=== PATIENT | female | born 1960 | race Caucasian/White ===

== ENCOUNTER 2016-04-18 11:33 | Emergency (ER) | payer OTHER ==
[~2016-04-18] VITALS: Ht 172.7 cm; Wt 60.0 kg
[~2016-04-18 11:33] MED LIST: BACL10TA PO; CIPR500T4 PO; CLON0.5T PO; DICY1TAB26 PO; GABA300 PO; OXYC10TA8 PO
[2016-04-18 11:43] VITALS: BP 115/58; PULSE 60; RESP 14; TEMP 98.7; O2SAT 96
[2016-04-18 12:22] LABS: BASOPHIL % 1.1 % (0.0-2.0); HEMATOCRIT 35.5 % (35.0-46.0); HEMO FLAGS DIFF FINAL; LYMPH % 25.6 % (9.0-44.0); LYMPHOCYTE # 0.8 TH/MM3 (1.0-4.8); MEAN CELL VOLUME 88.5 FL (80.0-100.0); MEAN CORPUSCULAR HGB CONC 32.8 % (32.0-36.0); NEUT % 66.3 % (16.0-70.0); PLATELET COUNT 163 TH/MM3 (150-450); RED BLOOD COUNT 4.01 MIL/MM3 (4.00-5.30); RED CELL DISTRIBUTION WIDTH 13.1 % (11.6-17.2)
[2016-04-18] MEDS ORDERED: ONDANSETRON HCL 4 MG/2 ML VIAL IV PUSH ONE (12:30)
--- NOTE | 2016-04-18 12:47 | PD ---
HPI Chief Complaint: Medical Clearance Time Seen by Provider: 12:44 Travel History International Travel<30 days: No Contact w/Intl Traveler<30days: No Traveled to known affect area: No History of Present Illness HPI 56-year-old female that presents to the ED for evaluation of possible side effect of Cymbalta. Per patient she has a history of MS and peripheral neuropathy. Per patient she's been taking Neurontin for a long time for this and she told yesterday to her doctor at that the Neurontin was working any more so her doctor stopped the Neurontin and recommended starting Cymbalta. She took one dose yesterday. Per patient she felt fine yesterday but today this morning she woke up with nausea and vomiting. She has vomited yellow fluid but no blood. She states that she believes is because of the Cymbalta. She states that she's been taking Neurontin for a long time but she did not took it today or yesterday. She states that she wants to go back to it as Cymbalta is given her too much of side effect. She denies any abdominal pain. No problems with bowel movement or urine. Per patient she did have a normal bowel movement yesterday. She denies any chest pain or shortness of breath. No headache. No other medical problems. PFSH Past Surgical History Section: Yes Cholecystectomy: Yes Social History Alcohol Use: No Tobacco Use: Yes Substance Use: No Allergies-Medications (Allergen,Severity, Reaction): Coded Allergies: No Known Allergies (Unverified , 01/26/16) Reported Meds & Prescriptions Reported Meds & Active Scripts Active Zofran (Ondansetron HCl) 4 Mg Tab 4 Mg PO Q6HR PRN Cipro (Ciprofloxacin HCl) 500 Mg Tab 500 Mg PO BID 7 Days Bentyl (Dicyclomine HCl) 20 Mg Tab 20 Mg PO Q8 Reported Clonazepam 0.5 Mg Tab 0.5 Mg PO HS Neurontin (Gabapentin) 300 Mg Cap 300 Mg PO BID Lioresal (Baclofen) 10 Mg Tab 10 Mg PO BID Oxycodone (Oxycodone HCl) 10 Mg Tab 10 Mg PO Q4H PRN Review of Systems Except as stated in HPI: all other systems reviewed are Neg Physical Exam Narrative GENERAL: SKIN: Warm and dry. HEAD: Atraumatic. Normocephalic. EYES: Pupils equal and round. No scleral icterus. No injection or drainage. ENT: No nasal bleeding or discharge. Mucous membranes pink and moist. Tongue is midline. No uvula deviation. NECK: Trachea midline. No JVD. CARDIOVASCULAR: Regular rate and rhythm. No murmurs, S3, S4. RESPIRATORY: No accessory muscle use. Clear to auscultation. Breath sounds equal bilaterally. GASTROINTESTINAL: Abdomen soft, non-tender, nondistended. Hepatic and splenic margins not palpable. MUSCULOSKELETAL: Extremities without clubbing, cyanosis, or edema. No obvious deformities. Full range of motion of the upper and lower extremities bilaterally. 2+ pulses bilaterally. NEUROLOGICAL: Awake and alert. No obvious cranial nerve deficits. Motor grossly within normal limits. Five out of 5 muscle strength in the arms and legs. Normal speech. PSYCHIATRIC: Appropriate mood and affect; insight and judgment normal. Data Data Last Documented VS Vital Signs Date Time Temp Pulse Resp B/P Pulse Ox O2 Delivery O2 Flow Rate FiO2 04/18/16 11:43 98.7 60 14 115/58 96 Orders Complete Blood Count With Diff (04/18/16 11:50) Comprehensive Metabolic Panel (04/18/16 11:50) Lipase (04/18/16 11:50) Urinalysis - C+S If Indicated (04/18/16 11:50) Magnesium (Mg) (04/18/16 11:50) Ondansetron Inj (Zofran Inj) (04/18/16 12:30) Potassium, Serum (K) (04/18/16 13:06) Electrocardiogram (04/18/16 ) Troponin I (04/18/16 13:39) Ct Abd/Pel W Iv Contrast(Rout) (04/18/16 ) Iohexol 350 Inj (Omnipaque 350 Inj) (04/18/16 14:59) Labs Laboratory Tests Test 04/18/16 04/18/16 12:09 13:28 White Blood Count 3.0 TH/MM3 Red Blood Count 4.01 MIL/MM3 Hemoglobin 11.6 GM/DL Hematocrit 35.5 % Mean Corpuscular Volume 88.5 FL Mean Corpuscular Hemoglobin 29.0 PG Mean Corpuscular Hemoglobin 32.8 % Concent Red Cell Distribution Width 13.1 % Platelet Count 163 TH/MM3 Mean Platelet Volume 9.1 FL Neutrophils (%) (Auto) 66.3 % Lymphocytes (%) (Auto) 25.6 % Monocytes (%) (Auto) 6.0 % Eosinophils (%) (Auto) 1.0 % Basophils (%) (Auto) 1.1 % Neutrophils # (Auto) 2.0 TH/MM3 Lymphocytes # (Auto) 0.8 TH/MM3 Monocytes # (Auto) 0.2 TH/MM3 Eosinophils # (Auto) 0.0 TH/MM3 Basophils # (Auto) 0.0 TH/MM3 CBC Comment DIFF FINAL Differential Comment Sodium Level 141 MEQ/L Potassium Level 5.3 MEQ/L 4.5 MEQ/L Chloride Level 110 MEQ/L Carbon Dioxide Level 28.0 MEQ/L Anion Gap 3 MEQ/L Blood Urea Nitrogen 19 MG/DL Creatinine 0.54 MG/DL Estimat Glomerular Filtration 117 ML/MIN Rate Random Glucose 75 MG/DL Calcium Level 7.3 MG/DL Protein Corrected Calcium 7.7 MG/DL Magnesium Level 1.7 MG/DL Total Bilirubin 0.4 MG/DL Aspartate Amino Transf 45 U/L (AST/SGOT) Alanine Aminotransferase 20 U/L (ALT/SGPT) Alkaline Phosphatase 83 U/L Troponin I LESS THAN 0.02 NG/ML Total Protein 6.3 GM/DL Albumin 2.6 GM/DL Lipase 21 U/L MDM Medical Decision Making Medical Screen Exam Complete: Yes Emergency Medical Condition: Yes Medical Record Reviewed: Yes Interpretation(s) CBC Diagram 04/18/16 12:09 BMP Diagram 04/18/16 12:09 04/18/16 13:28 troponin negative LFTS and lipase WNL UA negative Differential Diagnosis Medication side effect versus nausea and vomiting versus acute abdomen versus viral illness versus normal exam Narrative Course 56-year-old female that presents to the ED for evaluation of possible medication side effect. Patient was properly examined and was found to have signs and symptoms consistent with appears to be likely medication side effect. I did look up in up-to-date and went to the mind side effect of Cymbalta is nausea and vomiting. Discussed be secondary to stopping Neurontin. Patient's physical exam is benign. She does have a history of MS but I do not believe that this is related to that. My recommendation is to the left runny sign of acute disease as well as give treatment for the nausea. She is agreeable with this. Patient was given Zofran. Labs were drawn and showed no sign of acute disease. Patient was reassured. Case discussed with my attending Dr Trinh who evaluated the patient with me and agrees with plan. Patient was instructed to continue Neurontin as normal. Follow with Dr. Busch this week. Patient was given prescription for Zofran for nausea prophylaxis. See ED for any worsening symptoms. Diagnosis Primary Impression: Medication side effect Qualified Code: T88.7XXA - Medication side effect, initial encounter Patient Instructions: General Instructions Additional Instructions: Follow-up with your neurologist. See ED worsening symptoms. Take medications as prescribed. Med/Other Pt SpecificInfo: Prescription(s) given Scripts Ondansetron (Zofran)4 Mg Tab4 Mg PO Q6HR PRN (NAUSEA OR VOMITING) #20 TAB Prov:Brianna Trinh MD 04/18/16 Disposition: 01 DISCHARGE HOME Condition: Stable Ottoniel Garcia Apr 18, 2016 12:47
[2016-04-18 12:54] LABS: CALCIUM-PROTEIN CORRECTED 7.7 MG/DL (8.5-10.1); TOTAL BILIRUBIN ADULT 0.4 MG/DL (0.2-1.0)
[2016-04-18 12:55] LABS: MAGNESIUM 1.7 MG/DL (1.5-2.5); POTASSIUM 5.3 MEQ/L (3.5-5.1)
--- NOTE | 2016-04-18 14:36 | RADRPT ---
EXAM DATE/TIME: 04/18/2016 14:06 [facility] COMPARISON: CT ABDOMEN & PELVIS W CONTRAST, November 24, 2015, 20:33. INDICATIONS : Nausea and vomiting starting this morning IV CONTRAST: 71 cc Omnipaque 350 (iohexol) IV ORAL CONTRAST: No oral contrast ingested. RADIATION DOSE: 9.66 CTDIvol (mGy) MEDICAL HISTORY : Multple sclerosis. SURGICAL HISTORY : Cholecystectomy. section. ENCOUNTER: Initial ACUITY: 1 day PAIN SCALE: 2/10 LOCATION: Abdomen TECHNIQUE: Volumetric scanning of the abdomen and pelvis was performed. Using automated exposure control and ad justment of the mA and/or kV according to patient size, radiation dose was kept as low as reasonably achievable to obtain optimal diagnostic quality images. FINDINGS: LOWER LUNGS: The visualized lower lungs are clear. LIVER: Homogeneous density with a small stable benign cyst again noted in the right lobe. The patient is sta tus post cholecystectomy. There is no dilation of the biliary tree. SPLEEN: Normal size without lesion. PANCREAS: Within normal limits. KIDNEYS: Normal in size and shape. There is no mass, stone or hydronephrosis. ADRENAL GLANDS: Within normal limits. VASCULAR: There is no aortic aneurysm. BOWEL/MESENTERY: The stomach, small bowel, and colon demonstrate no acute abnormality. There is no free intraperitone al air or fluid. ABDOMINAL WALL: Within normal limits. RETROPERITONEUM: There is no lymphadenopathy. BLADDER: No wall thickening or mass. REPRODUCTIVE: Within normal limits. INGUINAL: There is no lymphadenopathy or hernia. MUSCULOSKELETAL: Within normal limits for patient age. CONCLUSION: 1. Unremarkable bowel gas pattern with no inflammatory change or obstruction. 2. Status post cholecystectomy. 3. Stable simple cyst in liver. Jens Archer MD on April 18, 2016 at 14:31 Board Certified Radiologist. This report was verified electronically.
[2016-04-18] MEDS ORDERED: ZOFR4TAB PO (14:45)
[2016-04-18] MEDS ORDERED: IOHEXOL 350 MG/ML 10 ML VIAL (for RAD DIAG) IV ONE (14:59)
--- NOTE | 2016-04-19 22:59 | EKG ---
Date Performed: 04/18/2016 Time Performed: 12:54:47 PTAGE: 56 years EKG: Sinus rhythm WITH SINUS ARRHYTHMIA POSSIBLE LEFT ATRIAL ENLARGEMENT BORDERLINE ECG NO PREVIOUS TRACING DOCTOR: Sanchez Hoang Interpretating Date/Time 04/19/2016 22:51:55
== END 2016-04-18 15:34 | disposition home or self-care (01) ==
LOC: NEDAMB 11:33
DX: T43.215A Adverse effect of selective serotonin and norepinephrine reuptake inhibitors, initial encounter (principal); R11.2 Nausea with vomiting, unspecified; Y92.009 Unspecified place in unspecified non-institutional (private) residence as the place of occurrence of the external cause; G62.9 Polyneuropathy, unspecified; Z72.0 Tobacco use; R94.31 Abnormal electrocardiogram [ECG] [EKG]
CPT/HCPCS: 74177; 80053; 83690; 83735; 84132; 84484; 85025; 93005; 96374; 99284; J2405; Q9967

== ENCOUNTER 2016-06-10 19:48 | Emergency (ER) | payer OTHER ==
[~2016-06-10 19:48] MED LIST changes: +ZOFR4TAB PO
[2016-06-10 20:20] VITALS: BP 94/47; PULSE 50; RESP 14; TEMP 97.6; O2SAT 99
== END 2016-06-10 22:00 | disposition left against medical advice (07) ==
LOC: PHED 19:48
DX: T68.XXXA Hypothermia, initial encounter (principal)
CPT/HCPCS: 99281

== ENCOUNTER 2016-11-22 14:43 | Emergency (ER) | payer OTHER ==
[2016-11-22 15:25] VITALS: BP 126/60; PULSE 45; RESP 16; TEMP 97.9; O2SAT 100
[2016-11-22] MEDS ORDERED: SODIUM CHLOR 0.9% 1000 ML INJ 1,000 ML IV SCH (15:31)
[2016-11-22] MEDS ORDERED: LYRI50CA PO (15:32)
[2016-11-22] MEDS ORDERED: BACL20TA PO (15:32)
[2016-11-22] MEDS ORDERED: CLON0.5T PO (15:32)
[2016-11-22] MEDS ORDERED: PERC10TA27 PO (15:32)
[2016-11-22] MEDS ORDERED: SODIUM CHLORIDE 0.9% FLUSH 10 ML FLUSH IV FLUSH PRN (15:45)
[2016-11-22 15:58] VITALS: O2SAT 99
[2016-11-22 16:06] LABS: AUTOMATED NEUTROPHIL # 2.4 TH/MM3 (1.8-7.7); BASOPHIL # 0.1 TH/MM3 (0-0.2); BASOPHIL % 1.1 % (0.0-2.0); EOSINOPHIL # 0.1 TH/MM3 (0-0.4); EOSINOPHIL % 1.1 % (0.0-4.0); HEMATOCRIT 40.3 % (35.0-46.0); HEMO FLAGS DIFF FINAL; LYMPH % 42.9 % (9.0-44.0); LYMPHOCYTE # 2.3 TH/MM3 (1.0-4.8); MEAN CORPUSCULAR HEMOGLOBIN 28.4 PG (27.0-34.0); MEAN CORPUSCULAR HGB CONC 32.2 % (32.0-36.0); MONO % 8.3 % (0.0-8.0); NEUT % 46.6 % (16.0-70.0); PLATELET COUNT 207 TH/MM3 (150-450); RED BLOOD COUNT 4.57 MIL/MM3 (4.00-5.30); RED CELL DISTRIBUTION WIDTH 13.2 % (11.6-17.2); WHITE BLOOD COUNT 5.3 TH/MM3 (4.0-11.0)
[2016-11-22 16:26] LABS: BLOOD, URINE TRACE (NEG); GLUCOSE,URINE NEG (NEG); KETONE, URINE NEG (NEG); NITRITE,URINE NEG (NEG)
[2016-11-22 16:30] LABS: CHLORIDE 104 MEQ/L (98-107); POTASSIUM 3.8 MEQ/L (3.5-5.1); SODIUM (NA) 143 MEQ/L (136-145)
[2016-11-22 16:34] LABS: ANION GAP 7 MEQ/L (5-15); BICARBONATE 32.3 MEQ/L (21.0-32.0); BLOOD UREA NITROGEN 21 MG/DL (7-18)
[2016-11-22 16:37] LABS: ALT (GPT) 43 U/L (10-53); AST (GOT) 33 U/L (15-37); GLOMERULAR FILTRATION RATE 100 ML/MIN (>89)
[2016-11-22 16:38] LABS: TOTAL BILIRUBIN ADULT 0.6 MG/DL (0.2-1.0)
[2016-11-22 16:39] LABS: ALKALINE PHOSPHATASE 104 U/L (45-117)
[2016-11-22 16:45] LABS: URINE COLOR YELLOW (YELLW/STRAW)
[2016-11-22 16:46] LABS: MUCUS URINE MANY /lpf (OCC); RBC, URINE 0-3 /hpf (0-3); SQUAMOUS EPITHELIAL CELL URINE 0-5 /hpf (0-5)
[2016-11-22 16:47] LABS: COMMENT (UR) CULT NOT INDICATED; CULTURE IF INDICATED CULT NOT INDICATED
--- NOTE | 2016-11-22 17:06 | PD ---
HPI Chief Complaint: Abdominal Pain Time Seen by Provider: 15:31 Travel History International Travel<30 days: No Contact w/Intl Traveler<30days: No Traveled to known affect area: No History of Present Illness HPI The patient is 56-year-old female. She complains of 2 weeks of epigastric and left upper quadrant abdominal pain. She reports decreased oral intake generally. She denies fever. She denies vomiting nausea. She notes that her urologist believe the CT scan is indicated. She's seen no blood in the urine. She's had no flank pain. Patient has chronic abdominal pain. Patient has a history of MS. [facility] Past Medical History Diminished Hearing: No Neurologic: Yes (ms) Tetanus Vaccination: Unknown ?: Not Past Surgical History Section: Yes Cholecystectomy: Yes Social History Alcohol Use: No Tobacco Use: Yes Substance Use: No Allergies-Medications (Allergen,Severity, Reaction): Coded Allergies: duloxetine (Unverified Allergy, Intermediate, MUSCLE SPASMS , 11/12/16) Reported Meds & Prescriptions Reported Meds & Active Scripts Active Reported Clonazepam 0.5 Mg Tab 0.5 Mg PO HS Baclofen 20 Mg Tab 40 Mg PO BID Lyrica (Pregabalin) 50 Mg Cap 50 Mg PO DAILY Percocet (Oxycodone-Acetaminophen) 10-325 mg Tab 1 Tab PO Q6H PRN Review of Systems Except as stated in HPI: all other systems reviewed are Neg Physical Exam Narrative GENERAL: 56-year-old female well-nourished well-developed SKIN: Warm and dry. HEAD: Atraumatic. Normocephalic. EYES: Pupils equal and round. No scleral icterus. No injection or drainage. ENT: No nasal bleeding or discharge. Mucous membranes pink and moist. NECK: Trachea midline. No JVD. CARDIOVASCULAR: Regular rate and rhythm. RESPIRATORY: No accessory muscle use. Clear to auscultation. Breath sounds equal bilaterally. GASTROINTESTINAL: Abdomen soft, non-tender, nondistended. Hepatic and splenic margins not palpable. MUSCULOSKELETAL: Extremities without clubbing, cyanosis, or edema. No obvious deformities. NEUROLOGICAL: Speaking full sentences. No cranial nerve deficit. Generalized weakness motor function PSYCHIATRIC: Appropriate mood and affect; insight and judgment normal. Data Data Last Documented VS Vital Signs Date Time Temp Pulse Resp B/P (MAP) Pulse Ox O2 Delivery O2 Flow Rate FiO2 11/22/16 15:58 99 11/22/16 15:27 16 11/22/16 15:25 97.9 45 126/60 (82) Orders Orders Complete Blood Count With Diff (11/22/16 15:31) Comprehensive Metabolic Panel (11/22/16 15:31) Lipase (11/22/16 15:31) Iv Access Insert/Monitor (11/22/16 15:31) Ecg Monitoring (11/22/16 15:31) Oximetry (11/22/16 15:31) Sodium Chlor 0.9% 1000 Ml Inj (Ns 1000 M (11/22/16 15:31) Sodium Chloride 0.9% Flush (Ns Flush) (11/22/16 15:45) Cath For Specimen (11/22/16 15:33) Urinalysis - C+S If Indicated (11/22/16 15:33) Labs Laboratory Tests Test 11/22/16 15:56 11/22/16 16:18 White Blood Count 5.3 TH/MM3 Red Blood Count 4.57 MIL/MM3 Hemoglobin 13.0 GM/DL Hematocrit 40.3 % Mean Corpuscular Volume 88.0 FL Mean Corpuscular Hemoglobin 28.4 PG Mean Corpuscular Hemoglobin Concent 32.2 % Red Cell Distribution Width 13.2 % Platelet Count 207 TH/MM3 Mean Platelet Volume 8.7 FL Neutrophils (%) (Auto) 46.6 % Lymphocytes (%) (Auto) 42.9 % Monocytes (%) (Auto) 8.3 % Eosinophils (%) (Auto) 1.1 % Basophils (%) (Auto) 1.1 % Neutrophils # (Auto) 2.4 TH/MM3 Lymphocytes # (Auto) 2.3 TH/MM3 Monocytes # (Auto) 0.4 TH/MM3 Eosinophils # (Auto) 0.1 TH/MM3 Basophils # (Auto) 0.1 TH/MM3 CBC Comment DIFF FINAL Differential Comment Blood Urea Nitrogen 21 MG/DL Creatinine 0.62 MG/DL Random Glucose 92 MG/DL Total Protein 7.9 GM/DL Albumin 3.4 GM/DL Calcium Level 9.3 MG/DL Alkaline Phosphatase 104 U/L Aspartate Amino Transf (AST/SGOT) 33 U/L Alanine Aminotransferase (ALT/SGPT) 43 U/L Total Bilirubin 0.6 MG/DL Sodium Level 143 MEQ/L Potassium Level 3.8 MEQ/L Chloride Level 104 MEQ/L Carbon Dioxide Level 32.3 MEQ/L Anion Gap 7 MEQ/L Estimat Glomerular Filtration Rate 100 ML/MIN Lipase 64 U/L Urine Color YELLOW Urine Turbidity CLEAR Urine pH 5.0 Urine Specific [place] 1.027 Urine Protein NEG mg/dL Urine Glucose (UA) NEG mg/dL Urine Ketones NEG mg/dL Urine Occult Blood TRACE Urine Nitrite NEG Urine Bilirubin SMALL Urine Leukocyte Esterase NEG Urine RBC 0-3 /hpf Urine Squamous Epithelial Cells 0-5 /hpf Urine Mucus MANY /lpf Microscopic Urinalysis Comment CULT NOT INDICATED MDM Medical Decision Making Medical Screen Exam Complete: Yes Emergency Medical Condition: Yes Medical Record Reviewed: Yes Differential Diagnosis Gastritis, pancreatitis, appendicitis, acute cholecystitis, ascending cholangitis, AAA, perforated viscous, mesenteric ischemia, hepatitis, cystitis, hydronephrosis/hydroureter/nephroureter calculus, mesenteric adenitis, biliary colic Narrative Course CBC & BMP Diagram 11/22/16 15:56 Total Protein 7.9, Albumin 3.4, Calcium Level 9.3, Alkaline Phosphatase 104, Aspartate Amino Transf (AST/SGOT) 33, Alanine Aminotransferase (ALT/SGPT) 43, Total Bilirubin 0.6 Urinalysis reveals no UTI The patient is resting comfortably and feels better, is alert and in no distress. The patients results and examination findings were discussed. The repeat examination is unremarkable and benign. The history, exam, diagnostic testing, and current condition do not suggest any significant pathology to warrant further testing, continued ED treatment, admission, or surgical evaluation at this point. The vital signs have been stable. The patient does not have uncontrollable pain, intractable vomiting, or other significant symptoms. The patient's condition is stable and appropriate for discharge. The patient will pursue further outpatient evaluation with a primary care physician or other designated or consulting physician as indicated in the discharge instructions. The patient expressed understanding and was agreeable with this plan. Diagnosis Primary Impression: Epigastric abdominal pain Additional Impression: Loss of appetite Referrals: Primary Care Physician 2 days Additional Instructions: You have a choice when it comes to health care, and we are glad that you chose [facility]. Hopefully, we have met your expectations on today's visit. You are welcome to return to [facility] at any time, as we are committed to meeting the health care needs of our community. Med/Other Pt SpecificInfo: No Change to Meds Disposition: 01 DISCHARGE HOME Condition: Stable Nate Hannon MD Nov 22, 2016 17:06
[2016-11-22 17:35] VITALS: BP 112/63; PULSE 46; RESP 16; O2SAT 100
== END 2016-11-22 18:04 | disposition home or self-care (01) ==
LOC: PHED 14:43
DX: R10.13 Epigastric pain (principal); R63.0 Anorexia; Z72.0 Tobacco use; G35 Multiple sclerosis
CPT/HCPCS: 80053; 81001; 83690; 85025; 96360; 99284; J7030

== ENCOUNTER 2017-04-23 20:17 | Observation (INO) | payer OTHER, MEDICAID ==
[2017-04-23] MEDS: ASPIRIN 81 MG CHEW TAB PO (21:09)
[2017-04-23] MEDS: NITROGLYCERIN 0.4 MG SL 25 TABS/BTL SL (21:10)
[2017-04-23] MEDS ORDERED: SODIUM CHLORIDE 0.9% FLUSH 10 ML FLUSH IVF (21:15)
[2017-04-23 21:31] LABS: AUTOMATED NEUTROPHIL # 1.6 TH/MM3 (1.8-7.7); BASOPHIL # 0.1 TH/MM3 (0-0.2); BASOPHIL % 1.4 % (0.0-2.0); EOSINOPHIL # 0.1 TH/MM3 (0-0.4); EOSINOPHIL % 1.7 % (0.0-4.0); HEMATOCRIT 38.5 % (35.0-46.0); HEMO FLAGS DIFF FINAL; HEMOGLOBIN 12.4 GM/DL (11.6-15.3); LYMPH % 49.1 % (9.0-44.0); LYMPHOCYTE # 1.9 TH/MM3 (1.0-4.8); MEAN CORPUSCULAR HEMOGLOBIN 28.6 PG (27.0-34.0); MEAN CORPUSCULAR HGB CONC 32.2 % (32.0-36.0); MEAN PLATELET VOLUME 9.1 FL (7.0-11.0); MONO % 6.5 % (0.0-8.0); MONOCYTE # 0.3 TH/MM3 (0-0.9); NEUT % 41.3 % (16.0-70.0); PLATELET COUNT 161 TH/MM3 (150-450); RED BLOOD COUNT 4.33 MIL/MM3 (4.00-5.30); RED CELL DISTRIBUTION WIDTH 12.6 % (11.6-17.2)
[2017-04-23 21:36] LABS: CHLORIDE 104 MEQ/L (98-107); POTASSIUM 3.8 MEQ/L (3.5-5.1); SODIUM (NA) 141 MEQ/L (136-145)
[2017-04-23 21:39] LABS: CALCIUM 8.8 MG/DL (8.5-10.1)
[2017-04-23 21:40] LABS: ALBUMIN 3.4 GM/DL (3.4-5.0); ANION GAP 4 MEQ/L (5-15); BICARBONATE 33.3 MEQ/L (21.0-32.0); BLOOD UREA NITROGEN 18 MG/DL (7-18); GLUCOSE,RANDOM 106 MG/DL (74-106); MAGNESIUM 1.9 MG/DL (1.5-2.5)
[2017-04-23 21:41] LABS: APTT (PATIENT) 26.7 SEC (24.3-30.1); PROTHROMBIN TIME - PATIENT 10.6 SEC (9.8-11.6)
[2017-04-23 21:43] LABS: ALT (GPT) 29 U/L (10-53); AST (GOT) 27 U/L (15-37); CREATININE 0.61 MG/DL (0.50-1.00); GLOMERULAR FILTRATION RATE 101 ML/MIN (>89)
[2017-04-23 21:44] LABS: TOTAL BILIRUBIN ADULT 0.4 MG/DL (0.2-1.0); TOTAL PROTEIN 7.7 GM/DL (6.4-8.2)
[2017-04-23 21:46] LABS: ALKALINE PHOSPHATASE 102 U/L (45-117)
[2017-04-23 21:48] LABS: TROPONIN I LESS THAN 0.02 NG/ML (0.02-0.05)
[2017-04-23 21:50] LABS: CREATINE KINASE 59 U/L (26-192)
[2017-04-23 22:47] LABS: BILIRUBIN, URINE NEG (NEG); BLOOD, URINE NEG (NEG); GLUCOSE,URINE NEG (NEG); KETONE, URINE NEG (NEG); NITRITE,URINE NEG (NEG); URINE LEUKOCYTE ESTERASE NEG (NEG)
[2017-04-23 22:51] LABS: URINE COLOR YELLOW (YELLW/STRAW)
[2017-04-23 22:53] LABS: AMORPHOUS SEDIMENT, URINE FEW; COMMENT (UR) CATH-CULT NOT IND; CULTURE IF INDICATED CATH CULTURE NOT IND; MUCUS URINE FEW /lpf (OCC); SQUAMOUS EPITHELIAL CELL URINE > 8 /hpf (0-5)
[2017-04-23] MEDS ORDERED: NITROGLYCERIN 0.4 MG SL 25 TABS/BTL SL (23:45)
[2017-04-23] MEDS ORDERED: ACETAMINOPHEN 500 MG CPLT PO (23:45)
[2017-04-23] MEDS ORDERED: SODIUM CHLORIDE 0.9% FLUSH 10 ML FLUSH IV FLUSH (23:45)
[2017-04-24] MEDS: clonazePAM 1 MG TAB PO (00:20)
[2017-04-24] MEDS: BACLOFEN 20 MG TAB PO ×2 (00:20→07:54)
[2017-04-24] MEDS: oxyCODONE/ACETAMINOPHEN 10 MG/325 MG TAB PO ×3 (00:27→14:38)
[2017-04-24 03:42] LABS: TROPONIN I LESS THAN 0.02 NG/ML (0.02-0.05)
[2017-04-24 03:45] LABS: CREATINE KINASE 57 U/L (26-192)
[2017-04-24] MEDS: HEPARIN SODIUM - SQ 10,000 UNITS/ML VIAL SQ ×2 (06:27→12:13)
[2017-04-24 06:54] LABS: TROPONIN I LESS THAN 0.02 NG/ML (0.02-0.05)
[2017-04-24 06:57] LABS: CREATINE KINASE 53 U/L (26-192)
[2017-04-24] MEDS: SODIUM CHLORIDE 0.9% FLUSH 10 ML FLUSH IV FLUSH (07:53)
[2017-04-24] MEDS: PREGABALIN 25 MG CAP PO (07:54)
[2017-04-24] MEDS: ASPIRIN 325 MG TAB PO (07:55)
[2017-04-24] MEDS: DOCUSATE SODIUM 50 MG/SENNA 8.6 MG TAB PO (09:00)
[2017-04-24] MEDS ORDERED: BISACODYL 10 MG SUPP RECTAL (09:00)
[2017-04-24] MEDS ORDERED: MAGNESIUM HYDROXIDE SUSP 30 ML CUP PO (09:00)
[2017-04-24] MEDS: REGADENOSON INJ 0.4 MG/5 ML SYR IV (10:25)
[2017-04-24 11:59] LABS: CHOLESTEROL 191 MG/DL (120-200)
[2017-04-24] MEDS: SENNOSIDES 8.6 MG TAB PO (12:04)
[2017-04-24 12:14] LABS: CHOLESTEROL/ HDL RATIO 3.07 RATIO; HDL CHOLESTEROL 62.2 MG/DL (40.0-60.0); LDL CHOLESTEROL 121 MG/DL (0-99); TRIGLYCERIDES 41 MG/DL (42-150)
[2017-04-24] MEDS ORDERED: clonazePAM 0.5 MG TAB PO (21:00)
== END 2017-04-24 17:16 | disposition home or self-care (01) ==
LOC: PH3A 04-24 01:36 → PHED 20:17 → PHEDA 23:45
DX: R07.89 Other chest pain (principal); G35 Multiple sclerosis; R06.02 Shortness of breath; G62.9 Polyneuropathy, unspecified; R00.1 Bradycardia, unspecified; M79.602 Pain in left arm; Z72.0 Tobacco use; Z82.49 Family history of ischemic heart disease and other diseases of the circulatory system
CPT/HCPCS: 71045; 78452; 80053; 80061; 81001; 82550; 83735; 84484; 85025; 85610; 85730; 93005; 93017; 96372; 99285

== ENCOUNTER 2017-05-12 01:13 | Emergency (ER) | payer OTHER, MEDICAID ==
[~2017-05-12] VITALS: Ht 172.7 cm; Wt 75.0 kg
[2017-05-12 01:13] VITALS: BP 148/65; PULSE 58; RESP 16; TEMP 97.5; O2SAT 99
[~2017-05-12 01:13] MED LIST changes: -BACL10TA PO; +BACL20TA PO; -CIPR500T4 PO; -DICY1TAB26 PO; -GABA300 PO; +LYRI50CA PO; -OXYC10TA8 PO; +PERC10TA27 PO; -ZOFR4TAB PO
[2017-05-12] MEDS ORDERED: ASPI81CH6 CHEW (01:30)
[2017-05-12] MEDS ORDERED: SODIUM CHLORIDE 0.9% FLUSH 10 ML FLUSH IVF PRN (01:45)
[2017-05-12 01:55] LABS: AUTOMATED NEUTROPHIL # 2.4 TH/MM3 (1.8-7.7); BASOPHIL % 0.4 % (0.0-2.0); HEMATOCRIT 35.9 % (35.0-46.0); LYMPH % 19.4 % (9.0-44.0); LYMPHOCYTE # 0.7 TH/MM3 (1.0-4.8); MEAN CELL VOLUME 88.4 FL (80.0-100.0); MEAN CORPUSCULAR HEMOGLOBIN 29.6 PG (27.0-34.0); MEAN CORPUSCULAR HGB CONC 33.5 % (32.0-36.0); MEAN PLATELET VOLUME 8.2 FL (7.0-11.0); MONOCYTE # 0.4 TH/MM3 (0-0.9); NEUT % 68.2 % (16.0-70.0); PLATELET COUNT 178 TH/MM3 (150-450); RED BLOOD COUNT 4.06 MIL/MM3 (4.00-5.30); RED CELL DISTRIBUTION WIDTH 12.7 % (11.6-17.2); WHITE BLOOD COUNT 3.5 TH/MM3 (4.0-11.0)
[2017-05-12 02:01] LABS: BILIRUBIN, URINE NEG (NEG); BLOOD, URINE SMALL (NEG); GLUCOSE,URINE NEG (NEG); KETONE, URINE 40 mg/dL (NEG); NITRITE,URINE POS (NEG); URINE LEUKOCYTE ESTERASE LARGE (NEG)
[2017-05-12 02:04] LABS: CALCIUM 8.9 MG/DL (8.5-10.1)
[2017-05-12 02:05] LABS: BICARBONATE 30.4 MEQ/L (21.0-32.0)
[2017-05-12 02:08] LABS: CREATININE 0.5 MG/DL (0.50-1.00); MUCUS URINE FEW /lpf (OCC); SQUAMOUS EPITHELIAL CELL URINE 0-5 /hpf (0-5); URINE COLOR YELLOW (YELLW/STRAW)
[2017-05-12 02:09] LABS: BACTERIA, URINE MANY /hpf; WHITE BLOOD CELL CLUMPS MOD
[2017-05-12 02:10] LABS: RBC, URINE 0-3 /hpf (0-3)
[2017-05-12] MEDS ORDERED: cefTRIAXone INJ 1,000 MG in SODIUM CHLORIDE 0.9% INJ 100 ML IV ONE (02:30)
--- NOTE | 2017-05-12 02:32 | PD ---
HPI Chief Complaint: General Weakness Time Seen by Provider: 01:38 Travel History International Travel<30 days: No Contact w/Intl Traveler<30days: No Traveled to known affect area: No History of Present Illness HPI 57-year-old female with history of multiple sclerosis and neuropathy presents to the emergency department for stating he has not felt well for several days. Patient states she contacted her provider indicating that she thought she had a urinary tract infection and was encouraged to follow-up in the office. Patient states that she decided not to follow-up as indicated but over the weekend symptoms have worsened and presents now for further evaluation. Patient presents by EMS transport. Patient states that she knows her body and is convinced that she has a urinary tract infection. Patient is also had sinus congestion and cough. Cough is nonproductive but congested. Patient denies fever chills. Patient did have flu vaccine. The patient rates her pain 8/10 in intensity. PFSH Past Medical History Narrative Medical Cholecystectomy ; anemia cholelithiasis chest pain multiple sclerosis neuropathy no tobacco use; nursing notes reviewed Anemia: Yes Chest Pain: Yes Diminished Hearing: No Gastrointestinal Disorders: Yes (GALLSTONES) Genitourinary: No Immune Disorder: No Musculoskeletal: Yes Neurologic: Yes (MULTIPLE SCLEROSIS) Psychiatric: No Reproductive: No Respiratory: No Tetanus Vaccination: > 5 Years Influenza Vaccination: Yes ?: Not Menopausal: Yes : 1 Para: 1 Tubal Ligation: Yes Past Surgical History Abdominal Surgery: Yes Section: Yes (1984) Cholecystectomy: Yes Gynecologic Surgery: Yes Social History Alcohol Use: No Tobacco Use: No (QUIT 2009) Substance Use: No Allergies-Medications (Allergen,Severity, Reaction): Coded Allergies: duloxetine (Unverified Allergy, Intermediate, MUSCLE SPASMS , 05/12/17) Reported Meds & Prescriptions Reported Meds & Active Scripts Active Reported Aspirin Low Dose (Aspirin) 81 Mg Chew 81 Mg CHEW DAILY Clonazepam 0.5 Mg Tab 0.5 Mg PO HS Baclofen 20 Mg Tab 40 Mg PO BID Lyrica (Pregabalin) 50 Mg Cap 50 Mg PO DAILY Percocet (Oxycodone-Acetaminophen) 10-325 mg Tab 1 Tab PO Q6H PRN Review of Systems Except as stated in HPI: all other systems reviewed are Neg General / Constitutional: No: Fever, Chills HENT: Positive: Congestion Cardiovascular: No: Chest Pain or Discomfort Respiratory: Positive: Cough, No: Shortness of Breath Gastrointestinal: No: Vomiting, Abdominal Pain Genitourinary: Positive: Dysuria Musculoskeletal: Positive: Myalgias, Arthralgias Skin: No Rash Neurologic: No: Weakness Psychiatric: No: Anxiety Hematologic/Lymphatic: No: Lymph Node Enlargement Physical Exam Narrative GENERAL: Well-developed well-nourished female in no acute distress or respiratory distress SKIN: Warm and dry. HEAD: Normocephalic. EYES: No scleral icterus. No injection or drainage. ENT: Mucous membranes moist nares patent NECK: Supple, trachea midline. No JVD or lymphadenopathy. No meningismus no nuchal rigidity CARDIOVASCULAR: Regular rate and rhythm without murmurs, gallops, or rubs. RESPIRATORY: Breath sounds equal bilaterally. No accessory muscle use. GASTROINTESTINAL: Abdomen soft, non-tender, nondistended. MUSCULOSKELETAL: No cyanosis, bilateral lower leg/pedal edema edema. BACK: Nontender without obvious deformity. No CVA tenderness. Data Data Last Documented VS Vital Signs Date Time Temp Pulse Resp B/P (MAP) Pulse Ox O2 Delivery O2 Flow Rate FiO2 05/12/17 02:45 50 16 116/61 (79) 98 Room Air 05/12/17 01:13 97.5 Orders Orders Complete Blood Count With Diff (05/12/17 01:38) Basic Metabolic Panel (Bmp) (05/12/17 01:38) Influenzae A/B Antigen (05/12/17 01:38) Chest, Single Ap (05/12/17 01:38) Iv Access Insert/Monitor (05/12/17 01:38) Oximetry (05/12/17 01:38) Sodium Chloride 0.9% Flush (Ns Flush) (05/12/17 01:45) Urinalysis - C+S If Indicated (05/12/17 01:38) Urine Culture (05/12/17 01:20) Ceftriaxone Inj (Rocephin Inj) (05/12/17 02:30) Ketorolac Inj (Toradol Inj) (05/12/17 02:45) Ed Discharge Order (05/12/17 03:36) Labs Laboratory Tests Test 05/12/17 01:20 White Blood Count 3.5 TH/MM3 Red Blood Count 4.06 MIL/MM3 Hemoglobin 12.0 GM/DL Hematocrit 35.9 % Mean Corpuscular Volume 88.4 FL Mean Corpuscular Hemoglobin 29.6 PG Mean Corpuscular Hemoglobin Concent 33.5 % Red Cell Distribution Width 12.7 % Platelet Count 178 TH/MM3 Mean Platelet Volume 8.2 FL Neutrophils (%) (Auto) 68.2 % Lymphocytes (%) (Auto) 19.4 % Monocytes (%) (Auto) 11.0 % Eosinophils (%) (Auto) 1.0 % Basophils (%) (Auto) 0.4 % Neutrophils # (Auto) 2.4 TH/MM3 Lymphocytes # (Auto) 0.7 TH/MM3 Monocytes # (Auto) 0.4 TH/MM3 Eosinophils # (Auto) 0.0 TH/MM3 Basophils # (Auto) 0.0 TH/MM3 CBC Comment DIFF FINAL Differential Comment Urine Collection Type CATH Urine Color YELLOW Urine Turbidity MARKED Urine pH 6.0 Urine Specific [place] 1.014 Urine Protein NEG mg/dL Urine Glucose (UA) NEG mg/dL Urine Ketones 40 mg/dL Urine Occult Blood SMALL Urine Nitrite POS Urine Bilirubin NEG Urine Leukocyte Esterase LARGE Urine RBC 0-3 /hpf Urine WBC 50-99 /hpf Urine WBC Clumps MOD Urine Squamous Epithelial Cells 0-5 /hpf Urine Bacteria MANY /hpf Urine Mucus FEW /lpf Microscopic Urinalysis Comment CATH-CULTURE IND Blood Urea Nitrogen 15 MG/DL Creatinine 0.50 MG/DL Random Glucose 88 MG/DL Calcium Level 8.9 MG/DL Sodium Level 140 MEQ/L Potassium Level 3.5 MEQ/L Chloride Level 103 MEQ/L Carbon Dioxide Level 30.4 MEQ/L Anion Gap 7 MEQ/L Estimat Glomerular Filtration Rate 128 ML/MIN [facility] Medical Decision Making Medical Screen Exam Complete: Yes Emergency Medical Condition: Yes Medical Record Reviewed: Yes Interpretation(s) Influenza A/B antigen: Negative Urinalysis positive nitrites positive leukocyte esterase positive white blood cells, white blood cells and many bacteria culture indicated CBC & BMP Diagram 05/12/17 01:20 Calcium Level 8.9 Vital Signs Date Time Temp Pulse Resp B/P (MAP) Pulse Ox O2 Delivery O2 Flow Rate FiO2 05/12/17 01:13 58 Room Air 05/12/17 01:13 97.5 58 16 148/65 (92) 99 Differential Diagnosis Viral syndrome, sinusitis, pneumonia, influenza, UTI, pyelonephritis, sepsis, exacerbation MS Narrative Course IV access obtained systems collected and sent for resulting Urinalysis is abnormal with many bacteria culture indicated specimen is catheterized specimen patient given IV Rocephin Exacerbation of chronic pain Toradol 30 mg IV administered and normal saline bolus administered Diagnosis Primary Impression: Urinary tract infection Additional Impression: Multiple sclerosis Referrals: Primary Care Physician call for appointment Patient Instructions: General Instructions Additional Instructions: Increase fluid hydration Take antibiotic as prescribed Follow-up with your primary care provider Return to the emergency department for any concerns or change in condition May use acetaminophen/Tylenol for fever 100.4F or greater May use as tolerated ibuprofen/Advil/Motrin every 6-8 hours as needed for fever 100.4F or greater or for pain associated inflammation Med/Other Pt SpecificInfo: Prescription(s) given Scripts Ciprofloxacin (Cipro) 500 Mg Tab 500 MG PO BID for Infection for 10 Days, #20 TAB 0 Refills Prov: Suha Street MD 05/12/17 Disposition: 01 DISCHARGE HOME Condition: Stable Suha Street MD May 12, 2017 02:32
[2017-05-12 02:45] VITALS: BP 116/61; PULSE 48; PULSE 50; RESP 16; O2SAT 95; O2SAT 98
[2017-05-12] MEDS ORDERED: KETOROLAC TROMETHAMINE 30 MG/ML (IVP) VIAL IV PUSH ONE (02:45)
--- NOTE | 2017-05-12 03:13 | RADRPT ---
EXAM DATE/TIME: 05/12/2017 02:49 [facility] COMPARISON: CHEST SINGLE AP, April 23, 2017, 21:58. INDICATIONS : Shortness of breath. MEDICAL HISTORY : Multiple sclerosis. SURGICAL HISTORY : None. ENCOUNTER: Initial ACUITY: 1 day PAIN SCORE: 0/10 LOCATION: Bilateral chest FINDINGS: A single view of the chest demonstrates the lungs to be symmetrically aerated without evidence of mas s, infiltrate or effusion. The cardiomediastinal contours are unremarkable. Osseous structures are intact. CONCLUSION: No acute disease. Josh Hernandes MD on May 12, 2017 at 3:11 Board Certified Radiologist. This report was verified electronically.
[2017-05-12] MEDS ORDERED: CIPR-9 PO (04:04)
[2017-05-12 04:45] VITALS: BP 126/61
== END 2017-05-12 04:59 | disposition home or self-care (01) ==
LOC: PHED 01:13
DX: N39.0 Urinary tract infection, site not specified (principal); G35 Multiple sclerosis; R09.81 Nasal congestion; R05 Cough; B96.20 Unspecified Escherichia coli [E. coli] as the cause of diseases classified elsewhere; Z87.39 Personal history of other diseases of the musculoskeletal system and connective tissue; Z86.69 Personal history of other diseases of the nervous system and sense organs; Z87.19 Personal history of other diseases of the digestive system
CPT/HCPCS: 71045; 80048; 81001; 85025; 87077; 87086; 87186; 87804; 96365; 96375; 99284; J0696; J1885

== ENCOUNTER 2017-07-07 15:03 | Emergency (ER) | payer OTHER, MEDICAID ==
[~2017-07-07 15:03] MED LIST changes: +ASPI81CH6 CHEW; +CIPR-9 PO
[2017-07-07 15:06] VITALS: BP 136/66; PULSE 85; RESP 16; TEMP 97.8; O2SAT 100
[2017-07-07] MEDS ORDERED: SODIUM CHLOR 0.9% 1000 ML INJ 1,000 ML IV SCH (15:07)
[2017-07-07] MEDS ORDERED: SODIUM CHLORIDE 0.9% FLUSH 10 ML FLUSH IV FLUSH PRN (15:15)
--- NOTE | 2017-07-07 15:17 | PD ---
HPI Chief Complaint: Complaint Time Seen by Provider: 15:07 Travel History International Travel<30 days: No Contact w/Intl Traveler<30days: No Traveled to known affect area: No History of Present Illness HPI Patient is a 57-year-old female with history of multiple sclerosis, presents the emergency room with complaints of suprapubic tenderness. Patient reports that every 6 weeks, she has a UTI; patient reports that she has history of urinary incontinence due to her multiple sclerosis, patient reports that she knows her body and needs to be treated for a uti. Denies vaginal discharge/ bleeding. Denies pelvic pain. She did call her pcp prior to coming to the emergency room and was told to go to the ER for evaluation. patient denies any fever/chills. Denies any nausea or vomiting. PFSH Past Medical History Anemia: Yes Chest Pain: Yes Diminished Hearing: No Gastrointestinal Disorders: Yes (GALLSTONES) Genitourinary: No Immune Disorder: No Musculoskeletal: Yes Neurologic: Yes (MULTIPLE SCLEROSIS) Psychiatric: No Reproductive: No Respiratory: No Menopausal: Yes : 1 Para: 1 Tubal Ligation: Yes Past Surgical History Abdominal Surgery: Yes Section: Yes (1984) Cholecystectomy: Yes Gynecologic Surgery: Yes Social History Alcohol Use: No Tobacco Use: No (QUIT 2009) Substance Use: No Allergies-Medications (Allergen,Severity, Reaction): Coded Allergies: duloxetine (Unverified Allergy, Intermediate, MUSCLE SPASMS , 05/12/17) Reported Meds & Prescriptions Reported Meds & Active Scripts Active Cipro (Ciprofloxacin HCl) 500 Mg Tab 500 Mg PO BID 10 Days Reported Aspirin Low Dose (Aspirin) 81 Mg Chew 81 Mg CHEW DAILY Clonazepam 0.5 Mg Tab 0.5 Mg PO HS Baclofen 20 Mg Tab 40 Mg PO BID Lyrica (Pregabalin) 50 Mg Cap 50 Mg PO DAILY Percocet (Oxycodone-Acetaminophen) 10-325 mg Tab 1 Tab PO Q6H PRN Review of Systems General / Constitutional: No: Fever Eyes: No: Visual changes HENT: No: Headaches Cardiovascular: No: Chest Pain or Discomfort Respiratory: No: Shortness of Breath Gastrointestinal: No: Abdominal Pain Genitourinary: Positive: Dysuria, Other (suprapubic tenderness) Musculoskeletal: No: Pain Skin: No Rash Neurologic: No: Weakness Psychiatric: No: Depression Endocrine: No: Polydipsia Hematologic/Lymphatic: No: Easy Bruising Physical Exam Narrative GENERAL: NAD SKIN: Focused skin assessment warm/dry. HEAD: Atraumatic. Normocephalic. EYES: Pupils equal and round. No scleral icterus. No injection or drainage. ENT: No nasal bleeding or discharge. Mucous membranes pink and moist. NECK: Trachea midline. No JVD. CARDIOVASCULAR: Regular rate and rhythm. No murmur appreciated. RESPIRATORY: No accessory muscle use. Clear to auscultation. Breath sounds equal bilaterally. GASTROINTESTINAL: Abdomen soft, mildly tender suprapubic region, nondistended. Hepatic and splenic margins not palpable. MUSCULOSKELETAL: No obvious deformities. No clubbing. No cyanosis. No edema. NEUROLOGICAL: Awake and alert. No obvious cranial nerve deficits. Motor grossly within normal limits. Normal speech. PSYCHIATRIC: Appropriate mood and affect; insight and judgment normal. Data Data Last Documented VS Vital Signs Date Time Temp Pulse Resp B/P (MAP) Pulse Ox O2 Delivery O2 Flow Rate FiO2 07/07/17 16:04 16 100 Room Air 07/07/17 15:06 97.8 85 136/66 (89) Orders Orders Complete Blood Count With Diff (07/07/17 15:07) Comprehensive Metabolic Panel (07/07/17 15:07) Lipase (07/07/17 15:07) Prothrombin Time / Inr (Pt) (07/07/17 15:07) Act Partial Throm Time (Ptt) (07/07/17 15:07) Urinalysis - C+S If Indicated (07/07/17 15:07) Iv Access Insert/Monitor (07/07/17 15:07) Ecg Monitoring (07/07/17 15:07) Oximetry (07/07/17 15:07) Sodium Chlor 0.9% 1000 Ml Inj (Ns 1000 M (07/07/17 15:07) Sodium Chloride 0.9% Flush (Ns Flush) (07/07/17 15:15) Labs Laboratory Tests Test 07/07/17 15:20 07/07/17 15:30 Urine Color YELLOW Urine Turbidity CLEAR Urine pH 5.5 Urine Specific [place] GREATER/EQUAL 1.030 Urine Protein NEG mg/dL Urine Glucose (UA) NEG mg/dL Urine Ketones NEG mg/dL Urine Occult Blood NEG Urine Nitrite NEG Urine Bilirubin NEG Urine Urobilinogen 0.2 MG/DL Urine Leukocyte Esterase NEG Urine RBC 0-3 /hpf Urine WBC 0-2 /hpf Urine Squamous Epithelial Cells 0-5 /hpf Microscopic Urinalysis Comment CULT NOT INDICATED White Blood Count 4.2 TH/MM3 Red Blood Count 3.87 MIL/MM3 Hemoglobin 11.4 GM/DL Hematocrit 34.2 % Mean Corpuscular Volume 88.4 FL Mean Corpuscular Hemoglobin 29.5 PG Mean Corpuscular Hemoglobin Concent 33.3 % Red Cell Distribution Width 13.2 % Platelet Count 216 TH/MM3 Mean Platelet Volume 8.4 FL Neutrophils (%) (Auto) 52.3 % Lymphocytes (%) (Auto) 38.5 % Monocytes (%) (Auto) 6.6 % Eosinophils (%) (Auto) 1.3 % Basophils (%) (Auto) 1.3 % Neutrophils # (Auto) 2.1 TH/MM3 Lymphocytes # (Auto) 1.6 TH/MM3 Monocytes # (Auto) 0.3 TH/MM3 Eosinophils # (Auto) 0.1 TH/MM3 Basophils # (Auto) 0.1 TH/MM3 CBC Comment DIFF FINAL Differential Comment Prothrombin Time 10.6 SEC Prothromb Time International Ratio 1.0 RATIO Activated Partial Thromboplast Time 25.4 SEC Blood Urea Nitrogen 23 MG/DL Creatinine 0.56 MG/DL Random Glucose 109 MG/DL Total Protein 7.3 GM/DL Albumin 3.2 GM/DL Calcium Level 8.9 MG/DL Alkaline Phosphatase 93 U/L Aspartate Amino Transf (AST/SGOT) 28 U/L Alanine Aminotransferase (ALT/SGPT) 27 U/L Total Bilirubin 0.3 MG/DL Sodium Level 143 MEQ/L Potassium Level 3.5 MEQ/L Chloride Level 106 MEQ/L Carbon Dioxide Level 33.1 MEQ/L Anion Gap 4 MEQ/L Estimat Glomerular Filtration Rate 112 ML/MIN Lipase 64 U/L [facility] Medical Decision Making Medical Screen Exam Complete: Yes Emergency Medical Condition: Yes Medical Record Reviewed: Yes Interpretation(s) Vital Signs Date Time Temp Pulse Resp B/P (MAP) Pulse Ox O2 Delivery O2 Flow Rate FiO2 07/07/17 15:06 97.8 85 16 136/66 (89) 100 Differential Diagnosis UTI, electrolyte abnormality Narrative Course 57-year-old female presents to emergency room with complaints of UTI. During the course of the patients emergency department visit, the patients history, examination, and differential diagnosis were reviewed with the patient. The patient was placed on a studio operation engineer with oximetry and frequent blood pressure monitoring. The patient had an IV access obtained and blood work sent for analysis. The patient was initially provided IV fluids The patients laboratory studies were reviewed and remarkable for: Laboratory Tests Test 07/07/17 15:20 07/07/17 15:30 Urine Color YELLOW (YELLW/STRAW) Urine Turbidity CLEAR (CLEAR) Urine pH 5.5 (5.0-8.5) Urine Specific [place] GREATER/EQUAL 1.030 Urine Protein NEG mg/dL (NEG-TRACE) Urine Glucose (UA) NEG mg/dL (NEG) Urine Ketones NEG mg/dL (NEG) Urine Occult Blood NEG (NEG) Urine Nitrite NEG (NEG) Urine Bilirubin NEG (NEG) Urine Urobilinogen 0.2 MG/DL (LESS THAN Urine Leukocyte Esterase NEG (NEG) Urine RBC 0-3 /hpf (0-3) Urine WBC 0-2 /hpf (0-5) Urine Squamous Epithelial Cells 0-5 /hpf (0-5) Microscopic Urinalysis Comment CULT NOT INDICATED White Blood Count 4.2 TH/MM3 (4.0-11.0) Red Blood Count 3.87 MIL/MM3 (4.00-5.30) Hemoglobin 11.4 GM/DL (11.6-15.3) Hematocrit 34.2 % (35.0-46.0) Mean Corpuscular Volume 88.4 FL (80.0-100.0) Mean Corpuscular Hemoglobin 29.5 PG (27.0-34.0) Mean Corpuscular Hemoglobin Concent 33.3 % (32.0-36.0) Red Cell Distribution Width 13.2 % (11.6-17.2) Platelet Count 216 TH/MM3 (150-450) Mean Platelet Volume 8.4 FL (7.0-11.0) Neutrophils (%) (Auto) 52.3 % (16.0-70.0) Lymphocytes (%) (Auto) 38.5 % (9.0-44.0) Monocytes (%) (Auto) 6.6 % (0.0-8.0) Eosinophils (%) (Auto) 1.3 % (0.0-4.0) Basophils (%) (Auto) 1.3 % (0.0-2.0) Neutrophils # (Auto) 2.1 TH/MM3 (1.8-7.7) Lymphocytes # (Auto) 1.6 TH/MM3 (1.0-4.8) Monocytes # (Auto) 0.3 TH/MM3 (0-0.9) Eosinophils # (Auto) 0.1 TH/MM3 (0-0.4) Basophils # (Auto) 0.1 TH/MM3 (0-0.2) CBC Comment DIFF FINAL Differential Comment Prothrombin Time 10.6 SEC (9.8-11.6) Prothromb Time International Ratio 1.0 RATIO Activated Partial Thromboplast Time 25.4 SEC (24.3-30.1) Blood Urea Nitrogen 23 MG/DL (7-18) Creatinine 0.56 MG/DL (0.50-1.00) Random Glucose 109 MG/DL (74-106) Total Protein 7.3 GM/DL (6.4-8.2) Albumin 3.2 GM/DL (3.4-5.0) Calcium Level 8.9 MG/DL (8.5-10.1) Alkaline Phosphatase 93 U/L (45-117) Aspartate Amino Transf (AST/SGOT) 28 U/L (15-37) Alanine Aminotransferase (ALT/SGPT) 27 U/L (10-53) Total Bilirubin 0.3 MG/DL (0.2-1.0) Sodium Level 143 MEQ/L (136-145) Potassium Level 3.5 MEQ/L (3.5-5.1) Chloride Level 106 MEQ/L (98-107) Carbon Dioxide Level 33.1 MEQ/L (21.0-32.0) Anion Gap 4 MEQ/L (5-15) Estimat Glomerular Filtration Rate 112 ML/MIN (>89) Lipase 64 U/L (73-393) Labs reviewed, wbc 4.2, hemoglobin 11.4, hematocrit 34.2, platelets 216 Sodium 143, potassium 3.5, carbon dioxide 32.1, BUN 23, creatinine 0.56, glucose 109 AST 28, ALT 27, alk phos 93, lipase 64 UA: Negative leuk esterase, negative nitrites, 0-2 white blood cells I reviewed all labs and all studies with patient in detail, patient with no signs of infection. Patient will follow up with pcp and will return to ER as needed. Diagnosis Primary Impression: Examination Patient Instructions: General Instructions Additional Instructions: Please provide patient with a copy of their lab work and studies at discharge* * Please follow up with your primary care doctor in 2-3 days Return to the ER if symptoms worsen or progress Return to the ER as needed Disposition: 01 DISCHARGE HOME Condition: Stable Diane Betts DO Jul 07, 2017 15:17
[2017-07-07 15:44] LABS: BILIRUBIN, URINE NEG (NEG); BLOOD, URINE NEG (NEG); GLUCOSE,URINE NEG (NEG); KETONE, URINE NEG (NEG); NITRITE,URINE NEG (NEG); PH, URINE 5.5 (5.0-8.5); URINE COLOR YELLOW (YELLW/STRAW); URINE LEUKOCYTE ESTERASE NEG (NEG)
[2017-07-07 15:46] LABS: AUTOMATED NEUTROPHIL # 2.1 TH/MM3 (1.8-7.7); BASOPHIL # 0.1 TH/MM3 (0-0.2); BASOPHIL % 1.3 % (0.0-2.0); EOSINOPHIL # 0.1 TH/MM3 (0-0.4); EOSINOPHIL % 1.3 % (0.0-4.0); HEMATOCRIT 34.2 % (35.0-46.0); HEMOGLOBIN 11.4 GM/DL (11.6-15.3); LYMPH % 38.5 % (9.0-44.0); LYMPHOCYTE # 1.6 TH/MM3 (1.0-4.8); MEAN CELL VOLUME 88.4 FL (80.0-100.0); MEAN CORPUSCULAR HEMOGLOBIN 29.5 PG (27.0-34.0); MEAN CORPUSCULAR HGB CONC 33.3 % (32.0-36.0); MEAN PLATELET VOLUME 8.4 FL (7.0-11.0); MONO % 6.6 % (0.0-8.0); MONOCYTE # 0.3 TH/MM3 (0-0.9); NEUT % 52.3 % (16.0-70.0); PLATELET COUNT 216 TH/MM3 (150-450); RED BLOOD COUNT 3.87 MIL/MM3 (4.00-5.30); RED CELL DISTRIBUTION WIDTH 13.2 % (11.6-17.2); WHITE BLOOD COUNT 4.2 TH/MM3 (4.0-11.0)
[2017-07-07 15:56] LABS: CHLORIDE 106 MEQ/L (98-107); SODIUM (NA) 143 MEQ/L (136-145)
[2017-07-07 15:59] LABS: CALCIUM 8.9 MG/DL (8.5-10.1)
[2017-07-07 16:00] LABS: ALBUMIN 3.2 GM/DL (3.4-5.0); BICARBONATE 33.1 MEQ/L (21.0-32.0); BLOOD UREA NITROGEN 23 MG/DL (7-18); GLUCOSE,RANDOM 109 MG/DL (74-106); PROTHROMBIN TIME - PATIENT 10.6 SEC (9.8-11.6)
[2017-07-07 16:02] LABS: ALT (GPT) 27 U/L (10-53); AST (GOT) 28 U/L (15-37)
[2017-07-07 16:03] LABS: CREATININE 0.56 MG/DL (0.50-1.00); GLOMERULAR FILTRATION RATE 112 ML/MIN (>89)
[2017-07-07 16:04] VITALS: RESP 16; O2SAT 100
[2017-07-07 16:04] LABS: TOTAL BILIRUBIN ADULT 0.3 MG/DL (0.2-1.0); TOTAL PROTEIN 7.3 GM/DL (6.4-8.2)
[2017-07-07 16:05] LABS: ALKALINE PHOSPHATASE 93 U/L (45-117)
[2017-07-07 16:07] LABS: RBC, URINE 0-3 /hpf (0-3); SQUAMOUS EPITHELIAL CELL URINE 0-5 /hpf (0-5); WBC, URINE 0-2 /hpf (0-5)
[2017-07-07] MEDS ORDERED: CHOL5000 PO (16:22)
[2017-07-07 17:00] VITALS: BP 123/67
== END 2017-07-07 17:05 | disposition home or self-care (01) ==
LOC: PHED 15:03
DX: R32 Unspecified urinary incontinence (principal); R30.0 Dysuria; R10.30 Lower abdominal pain, unspecified; G35 Multiple sclerosis; Z87.891 Personal history of nicotine dependence
CPT/HCPCS: 80053; 81001; 83690; 85025; 85610; 85730; 99284; J7030

== ENCOUNTER 2018-01-28 10:16 | Observation (INO) ==
[2018-01-28] MEDS ORDERED: Acetaminophen 325 MG Tablet PO ONE (10:49)
--- NOTE | 2018-01-28 11:12 | XR ---
EXAM DATE: 01/28/2018 11:05 AM EDT AGE/SEX: 57 years / Female INDICATIONS: Chest pain and shortness of breath. CLINICAL DATA: This is the patient's initial encounter. Patient reports that signs and symptoms have been present for 1 day and indicates a pain score of 4/10. MEDICAL/SURGICAL HISTORY: None. None. COMPARISON: . FINDINGS: A single AP view of the chest demonstrates the lungs to be symmetrically aerated without evidence of mass, infiltrate or effusion. Mild cardiomegaly. No pneumothorax or pleural effusion. Osseous structu res are intact. CONCLUSION: Mild compensated cardiomegaly Electronically signed by: Misael Cameron MD 01/28/2018 11:10 AM EDT
[2018-01-28 11:26] LABS: Baso % (Auto) 0.1 % (0.0-2.0); Hematocrit 34.1 % (35.0-46.0); Hemoglobin 11.9 gm/dL (11.6-15.3); Lymph # (Auto) 0.4 th/mm3 (1.0-4.8); Lymph % (Auto) 6.9 % (9.0-44.0); Mean Corpuscular HGB Conc 34.8 % (32.0-36.0); Mean Corpuscular Hemoglobin 31.1 pg (27.0-34.0); Mean Corpuscular Volume 89.4 fL (80.0-100.0); Mean Platelet Volume 9.5 fL (7.0-11.0); Mono # (Auto) 0.3 th/mm3 (0.0-0.9); Mono % (Auto) 4.8 % (0.0-8.0); Neut # (Auto) 5.1 th/mm3 (1.8-7.7); Neut % (Auto) 88.2 % (16.0-70.0); Platelet Count 125 th/mm3 (150-450); Red Blood Count 3.81 mil/mm3 (4.00-5.30); Red Cell Distribution Width 13.3 % (11.6-17.2); White Blood Count 5.8 th/mm3 (4.0-11.0)
[2018-01-28 11:29] LABS: Alanine Aminotransferase 30 U/L (10-53); Anion Gap 6 meq/L (5-15); Aspartate Aminotransferase 30 U/L (15-37); Blood Urea Nitrogen 21 mg/dL (7-18); Calcium 8.4 mg/dL (8.5-10.1); Carbon Dioxide 31.4 meq/L (21.0-32.0); Chloride 106 meq/L (98-107); Glomerular Filtration Rate Greater Than 89 mL/min (>89); Glucose,Random 117 mg/dL (74-106); Potassium 3.8 meq/L (3.5-5.1); Sodium 143 meq/L (136-145)
[2018-01-28 11:32] LABS: Alkaline Phosphatase 117 U/L (45-117); Total Protein 7.1 g/dL (6.4-8.2)
[2018-01-28 11:41] LABS: Bacteria,Urine Many /hpf; Bilirubin,Urine Negative (Negative); Clarity,Urine Cloudy (Clear); Color,Urine Amber (Yellw/Straw); Glucose,Urine (UA) Negative (Negative); Leukocyte Esterase,Urine Negative (Negative); Mucus,Urine Many /lpf (Occasional); Nitrite,Urine Negative (Negative); Specific Gravity,Urine 1.024 (1.002-1.035); Squamous Epithelial Cell,Urine 1 /hpf (0-5); Urobilinogen,Urine 4 or Greater mg/dL (Less than 2)
[2018-01-28] MEDS ORDERED: MethylPREDNISolone Sod Succinate Inj 125 MG/2 ML Vial IV.PUSH ONE (12:02)
--- NOTE | 2018-01-28 12:09 | ED ---
HPI General Chief complaint: Fever Stated complaint: poss fever Time Seen by Provider: 01/28/18 11:49 History of Present Illness HPI narrative: 57-year-old female with a history of MS is brought to the ED by EMS for evaluation of fever and productive cough. The patient states that she has had a productive cough for the past 3 days which has been worsening. States that she now feels as though she is wheezing. States that this morning she started having a fever, states at home it was 102 F. She did not take any fever reducing medications prior to arrival. States that she is feeling more generalized weakness and that her arms are spasming, she feels her MS is aggravated by her illness. States that her significant other has had flu symptoms recently. Denies any recent travel. Denies any chest pain, shortness of breath, difficulty breathing, lightheadedness, dizziness, nausea, vomiting, abdominal pain, diarrhea. She is incontinent of urine at baseline. No other complaints. PCP is Dr. An. Related Data Home Medications Medication Instructions Recorded Confirmed baclofen 20 mg PO BID 10/25/17 01/28/18 clonazepam 0.5 mg PO DAILY 10/25/17 01/28/18 oxycodone-acetaminophen [Percocet] 1 tab PO Q4H PRN 10/25/17 01/28/18 pregabalin [Lyrica] 50 mg PO BID 10/25/17 01/28/18 Allergies Allergy/AdvReac Type Severity Reaction Status Date / Time duloxetine Allergy Intermediate MUSCLE Verified 01/28/18 10:41 SPASMS Review of Systems ROS: all other systems reviewed are negative PMFSH Social History Social History Substance History: No History of Abuse Second Hand Smoke Exposure: Yes Smoking Status: Former smoker Tobacco Type: Cigarettes How Often Do You Have a Drink Containing Alcohol: Never Recent Travel in [facility] within the Last 8 Weeks: No Recent Out of Country Travel within the Last 8 Weeks: No Immunization History Tetanus Immunization: >5 Years Exam Narrative Exam Narrative: GENERAL: Well-nourished and well-developed female patient in no acute distress who is nontoxic appearing. SKIN: Warm and dry without any obvious rashes or lesions. HEAD: Normocephalic and atraumatic. EYES: No injection, drainage, or hyphema noted. PERRLA. EOMI. ENT: No nasal drainage noted. Oropharynx is clear and the TMs are normal with good landmarks. NECK: Supple and the trachea is midline. CARDIOVASCULAR: Regular rate and rhythm. RESPIRATORY: Breath sounds are equal bilaterally with no accessory muscle use, wheezing, rhonchi, or crackles. GASTROINTESTINAL: Abdomen is soft, non-tender, and nondistended. MUSCULOSKELETAL: Arms are held stiffly in contractured position. Legs are atrophied, patient is wheelchair bound. No swelling, cyanosis, or ecchymosis is present throughout the upper and lower extremities. Patient has full range of motion without any signs of neurovascular compromise. Distal pulses are 2+ throughout. NEUROLOGICAL: Awake, alert, and oriented. Normal speech. Cranial nerves are grossly intact. Course Initial Documented Vital Signs Temperature 100.7 F H 01/28/18 10:21 Pulse Rate 88 01/28/18 10:21 Respiratory Rate 26 H 01/28/18 10:21 Blood Pressure 155/72 H 01/28/18 10:21 Pulse Oximetry 100 01/28/18 10:21 Last Documented Vital Signs Temperature 99 F 01/28/18 14:15 Pulse Rate 109 H 01/28/18 13:17 Respiratory Rate 20 01/28/18 13:17 Blood Pressure 126/57 L 01/28/18 13:17 Pulse Oximetry 98 01/28/18 13:17 Medical Decision Making [facility] Narrative Medical decision making narrative: 57-year-old female is brought to the ED by EMS for evaluation of productive cough and fever. Patient has a fever of 100.7 F here in the ED. Respiratory rate is increased. Otherwise vital signs are stable. On exam she does have wheezing throughout lung fraga. IV access is obtained, labs of been drawn and sent. Patient is placed on cardiac telemetry and pulse oximetry monitoring. Patient administered Tylenol for fever. She is administered albuterol nebulizers x3 and Solu-Medrol 125 mg IV. She is also administered a 500 cc normal saline bolus. CBC is unremarkable. CMP is unremarkable. Troponin is less than 0.02. Chest x-ray is negative for any acute abnormalities. Urinalysis shows positive urinary tract infection. Influenza swab is negative. Patient is reassessed after nebulizer treatments and her lungs are now clear to auscultation bilaterally. After the steroid her arms have also loosened up as well and are not as tightly spasmed. We will keep the patient in observation for Sirs as she meets criteria with source of infection urinary, respiratory, fever greater than 38 C and tachypnea. Patient is agreeable with this plan. I discussed the case with my attending physician Dr. Bearden who is aware of the patients history, physical examination findings, and treatment plan. I discussed with Dr. Muller [facility] who accepts patient under observation. Medical Screen Exam Complete: Yes Emergency Medical Condition: Yes Differential Diagnosis Differential Diagnosis: Pneumonia versus bronchitis versus influenza versus sepsis versus MS exacerbation Lab Data Result diagrams: 01/28/18 10:51 01/28/18 10:51 Lab Results 01/28/18 01/28/18 01/28/18 Range/Units 10:51 10:51 10:51 WBC 5.8 (4.0-11.0) th/mm3 RBC 3.81 L (4.00-5.30) mil/mm3 Hgb 11.9 (11.6-15.3) gm/dL Hct 34.1 L (35.0-46.0) % MCV 89.4 (80.0-100.0) fL MCH 31.1 (27.0-34.0) pg MCHC 34.8 (32.0-36.0) % RDW 13.3 (11.6-17.2) % Plt Count 125 L (150-450) th/mm3 MPV 9.5 (7.0-11.0) fL Neut % (Auto) 88.2 H (16.0-70.0) % Lymph % (Auto) 6.9 L (9.0-44.0) % [place] % (Auto) 4.8 (0.0-8.0) % Eos % (Auto) 0.0 (0.0-4.0) % Baso % (Auto) 0.1 (0.0-2.0) % Neut # (Auto) 5.1 (1.8-7.7) th/mm3 Lymph # (Auto) 0.4 L (1.0-4.8) th/mm3 [place] # (Auto) 0.3 (0.0-0.9) th/mm3 Eos # (Auto) 0.0 (0.0-0.4) th/mm3 Baso # (Auto) 0.0 (0.0-0.2) th/mm3 WBC Differential . Differential Comment Auto diff final Sodium 143 (136-145) meq/L Potassium 3.8 (3.5-5.1) meq/L Chloride 106 (98-107) meq/L Carbon Dioxide 31.4 (21.0-32.0) meq/L Anion Gap 6 (5-15) meq/L BUN 21 H (7-18) mg/dL Creatinine 0.58 (0.50-1.00) mg/dL Estimated GFR Greater than 89 (>89) mL/min Random Glucose 117 H (74-106) mg/dL Lactic Acid 1.6 (0.4-2.0) mmol/L Calcium 8.4 L (8.5-10.1) mg/dL Total Bilirubin 0.4 (0.2-1.0) mg/dL AST 30 (15-37) U/L ALT 30 (10-53) U/L Alkaline Phosphatase 117 (45-117) U/L Troponin I (0.02-0.05) ng/mL Total Protein 7.1 (6.4-8.2) g/dL Albumin 3.0 L (3.4-5.0) g/dL Urine Color (Yellw/Straw) Urine Clarity (Clear) Urine pH (5.0-8.5) Ur Specific [place] (1.002-1.035) Urine Protein (Neg-Trace) mg/dL Urine Glucose (UA) (Negative) mg/dL Urine Ketones (Negative) mg/dL Urine Occult Blood (Negative) Urine Nitrate (Negative) Urine Bilirubin (Negative) Urine Urobilinogen (Less than 2) mg/dL Ur Leukocyte Esterase (Negative) Urine RBC (0-3) /hpf Urine WBC (0-5) /hpf Ur Squamous Epith Cells (0-5) /hpf Urine Bacteria (None) /hpf Urine Mucus (Occasional) /lpf Micro UA Comment Ur Microscopic Review Urine Culture Comments 01/28/18 01/28/18 Range/Units 10:51 10:51 WBC (4.0-11.0) th/mm3 RBC (4.00-5.30) mil/mm3 Hgb (11.6-15.3) gm/dL Hct (35.0-46.0) % MCV (80.0-100.0) fL MCH (27.0-34.0) pg MCHC (32.0-36.0) % RDW (11.6-17.2) % Plt Count (150-450) th/mm3 MPV (7.0-11.0) fL Neut % (Auto) (16.0-70.0) % Lymph % (Auto) (9.0-44.0) % [place] % (Auto) (0.0-8.0) % Eos % (Auto) (0.0-4.0) % Baso % (Auto) (0.0-2.0) % Neut # (Auto) (1.8-7.7) th/mm3 Lymph # (Auto) (1.0-4.8) th/mm3 [place] # (Auto) (0.0-0.9) th/mm3 Eos # (Auto) (0.0-0.4) th/mm3 Baso # (Auto) (0.0-0.2) th/mm3 WBC Differential Differential Comment Sodium (136-145) meq/L Potassium (3.5-5.1) meq/L Chloride (98-107) meq/L Carbon Dioxide (21.0-32.0) meq/L Anion Gap (5-15) meq/L BUN (7-18) mg/dL Creatinine (0.50-1.00) mg/dL Estimated GFR (>89) mL/min Random Glucose (74-106) mg/dL Lactic Acid (0.4-2.0) mmol/L Calcium (8.5-10.1) mg/dL Total Bilirubin (0.2-1.0) mg/dL AST (15-37) U/L ALT (10-53) U/L Alkaline Phosphatase (45-117) U/L Troponin I Less than 0.02 L (0.02-0.05) ng/mL Total Protein (6.4-8.2) g/dL Albumin (3.4-5.0) g/dL Urine Color [place] (Yellw/Straw) Urine Clarity Cloudy H (Clear) Urine pH 6.0 (5.0-8.5) Ur Specific [place] 1.024 (1.002-1.035) Urine Protein 30 H (Neg-Trace) mg/dL Urine Glucose (UA) Negative (Negative) mg/dL Urine Ketones 20 (Negative) mg/dL Urine Occult Blood Negative (Negative) Urine Nitrate Negative (Negative) Urine Bilirubin Negative (Negative) Urine Urobilinogen 4 or greater (Less than 2) mg/dL Ur Leukocyte Esterase Negative (Negative) Urine RBC 2 (0-3) /hpf Urine WBC 7 H (0-5) /hpf Ur Squamous Epith Cells 1 (0-5) /hpf Urine Bacteria Many H (None) /hpf Urine Mucus Many H (Occasional) /lpf Micro UA Comment Cath-culture ind Ur Microscopic Review Not Reportable Urine Culture Comments Cath-cult indicated Imaging Data Radiologist's impression: Chest X-Ray 01/28/18 10:47 CONCLUSION: Mild compensated cardiomegaly Discharge Plan Discharge Disposition Patient Disposition: 30 Still Patient Discharge Details Diagnosis: SIRS (systemic inflammatory response syndrome), Acute UTI, Acute bronchitis, Multiple sclerosis Physicians Team ED Provider: Madelyn Bearden ED Midlevel Provider: Bebe Bazan Attending Provider: Mali Muller Status ED Status: Left Department Discharge Information Discharge Date/Time: 01/28/18 14:29
[2018-01-28] MEDS ORDERED: Sodium Chlor 0.9% Inj 500 ML IV.SIG SCH (13:00)
[2018-01-28] MEDS ORDERED: Azithromycin Inj 500 MG in Sodium Chlor 0.9% Inj 250 ML IV.SIG ONE (13:25)
[2018-01-28] MEDS ORDERED: Acetaminophen 325 MG Tablet PO PRN (13:51)
[2018-01-28] MEDS ORDERED: Bisacodyl 10 MG Supp RECTAL PRN (13:51)
--- NOTE | 2018-01-28 14:01 | P.HP ---
History of Present Illness Primary Care Physician: Rashel An Chief Complaint: Fever, cough History of Present Illness: 57-year-old female with history of MS, prior tobacco use, neuropathy, chronic pain, presents with a 3-day history of cough and fever. The patient reports intractable productive cough with yellow sputum over the past 3 days with some associated wheezing. Today she developed a fever of 102. Denies any significant shortness of breath, but does report diffuse bilateral rib cage pain with her intractable cough. She reports increasing weakness, and feels her infection is worsening her MS. She states at baseline she is able to ambulate, however has been very weak over the past few days. Denies any abdominal pain, nausea/vomiting, or diarrhea. Denies any urinary complaints, although is incontinent at baseline. Denies any other medical complaints at this time. Review of Systems All other systems reviewed negative except as stated in HPI PMFSH - History History Provided By: Patient, Miner Operator / EMT - Medical / Surgical Hx Neg / Unobtainable Surgical History: No Previous Surgery - Medical History Medical History: Medical History (Last Reviewed 01/28/18 @ 17:25 by Laine Kerr) Multiple sclerosis Neuropathy - Family History Family History: Family History (Last Updated 01/28/18 @ 17:25 by Laine Kerr) Mother Heart disease - Social History I have reviewed the patient's Social History: Yes - Tobacco History Second Hand Smoke Exposure: No Smoking Status: Former smoker - Alcohol History How Often Do You Have a Drink Containing Alcohol: Never - Substance Use History Substance History: No History of Abuse - Travel History Recent Travel in the [place] Within the Last 8 Weeks: No Recent Travel Out of the Country Within the Last 8 Weeks: No - Immunization History Tetanus Immunization: >5 Years Medications and Allergies Active Medications: Active Medications Acetaminophen (Tylenol) 650 mg PO Q4H PRN PRN Reason: Temp > 100.4 Al Hydroxide/Mg Hydroxide (Milk Of Magnesia Liq) 30 ml PO Q12H PRN PRN Reason: Mild Constipation Baclofen (Lioresal) 20 mg PO BID AYO Bisacodyl (Dulcolax Supp) 10 mg RECTAL DAILY PRN PRN Reason: SEVERE CONSITIPATION Clonazepam (Klonopin) 0.5 mg PO DAILY AYO Azithromycin 500 mg/ Sodium (Chloride) 250 mls @ 250 mls/hr IV.SIG ONCE ONE Stop: 01/28/18 14:24 Ceftriaxone Sodium 1,000 mg/ (Sodium Chloride) 100 mls @ 200 mls/hr IV.SIG Q24H AYO Sodium Chloride (Ns Inj) 1,000 mls @ 100 mls/hr IV.CONT .Q10H AYO Lactulose (Lactulose Liq) 30 ml PO DAILY PRN PRN Reason: SEVERE CONSITIPATION Non-Formulary Medication (Pregabalin [Lyrica]) 50 mg PO BID AYO Ondansetron HCl (Zofran Inj) 4 mg IV.PUSH Q6H PRN PRN Reason: NAUSEA OR VOMITING Oxycodone/Acetaminophen (Percocet 10/325 Mg) 1 tab PO Q4H PRN PRN Reason: Acute Pain Senna/Docusate Sodium ([place]-Colace) 1 tab PO BID [facility] Sennosides (Senokot) 17.2 mg PO Q12H PRN PRN Reason: Moderate Constipation Allergies Allergy/AdvReac Type Severity Reaction Status Date / Time duloxetine Allergy Intermediate MUSCLE Verified 01/28/18 10:41 SPASMS Home Medications Medication Instructions Recorded Confirmed Type baclofen 20 mg PO BID 10/25/17 01/28/18 History clonazepam 0.5 mg PO DAILY 10/25/17 01/28/18 History oxycodone-acetaminophen [Percocet] 1 tab PO Q4H PRN 10/25/17 01/28/18 History pregabalin [Lyrica] 50 mg PO BID 10/25/17 01/28/18 History Exam Vital signs: Vital Signs 01/28/18 10:21 01/28/18 12:14 01/28/18 12:15 Temperature 100.7 F H Pulse Rate 88 76 76 Respiratory Rate 26 H 15 15 Blood Pressure 155/72 H Pulse Oximetry 100 01/28/18 12:16 01/28/18 13:17 Temperature Pulse Rate 76 109 H Respiratory Rate 15 20 Blood Pressure 126/57 L Pulse Oximetry 98 Intake & Output 01/27/18 01/28/18 01/28/18 18:59 06:59 18:59 Intake Total 500 / 500 Balance 500 / 500 Weight 77.111 kg Intake: IV 500 / 500 NS Inj 500 ML @ 1000 mls/hr IV. 500 / 500 SIG BOLUS AYO Rx#:[id number] Narrative: GENERAL: Well-nourished, well-developed middle-aged female patient in NAD. Drowsy. SKIN: Warm and dry. No rash. HEENT: Normocephalic. Atraumatic. Pupils equal and round. Mucous membranes pink and moist. NECK: Supple. Trachea midline. CARDIOVASCULAR: Regular rate and rhythm. No murmur appreciated. RESPIRATORY: No accessory muscle use. Poor expiratory effort with decreased breath sounds at bilateral bases, otherwise clear. Breath sounds equal bilaterally. GASTROINTESTINAL: Abdomen soft, non-tender, nondistended. Normoactive bowel sounds x4. MUSCULOSKELETAL: No obvious deformities. Extremities without clubbing, cyanosis , or edema. NEUROLOGICAL: Awake and alert. No obvious cranial nerve deficits. Motor grossly within normal limits. Moving all extremities spontaneously with generalized weakness. Normal speech. PSYCHIATRIC: Appropriate mood and affect; insight and judgment normal. Results - Labs CBC & Chem 7: 01/28/18 10:51 01/28/18 10:51 Labs: Laboratory Results - last 24 hr 01/28/18 01/28/18 01/28/18 10:51 10:51 10:51 WBC 5.8 RBC 3.81 L Hgb 11.9 Hct 34.1 L MCV 89.4 MCH 31.1 MCHC 34.8 RDW 13.3 Plt Count 125 L MPV 9.5 Neut % (Auto) 88.2 H Lymph % (Auto) 6.9 L [place] % (Auto) 4.8 Eos % (Auto) 0.0 Baso % (Auto) 0.1 Neut # (Auto) 5.1 Lymph # (Auto) 0.4 L [place] # (Auto) 0.3 Eos # (Auto) 0.0 Baso # (Auto) 0.0 WBC Differential . Differential Comment Auto diff final Sodium 143 Potassium 3.8 Chloride 106 Carbon Dioxide 31.4 Anion Gap 6 BUN 21 H Creatinine 0.58 Estimated GFR Greater than 89 Random Glucose 117 H Lactic Acid 1.6 Calcium 8.4 L Total Bilirubin 0.4 AST 30 ALT 30 Alkaline Phosphatase 117 Troponin I Total Protein 7.1 Albumin 3.0 L Urine Color Urine Clarity Urine pH Ur Specific [place] Urine Protein Urine Glucose (UA) Urine Ketones Urine Occult Blood Urine Nitrate Urine Bilirubin Urine Urobilinogen Ur Leukocyte Esterase Urine RBC Urine WBC Ur Squamous Epith Cells Urine Bacteria Urine Mucus Micro UA Comment Ur Microscopic Review Urine Culture Comments 01/28/18 01/28/18 10:51 10:51 WBC RBC Hgb Hct MCV MCH MCHC RDW Plt Count MPV Neut % (Auto) Lymph % (Auto) [place] % (Auto) Eos % (Auto) Baso % (Auto) Neut # (Auto) Lymph # (Auto) [place] # (Auto) Eos # (Auto) Baso # (Auto) WBC Differential Differential Comment Sodium Potassium Chloride Carbon Dioxide Anion Gap BUN Creatinine Estimated GFR Random Glucose Lactic Acid Calcium Total Bilirubin AST ALT Alkaline Phosphatase Troponin I Less than 0.02 L Total Protein Albumin Urine Color [place] Urine Clarity Cloudy H Urine pH 6.0 Ur Specific [place] 1.024 Urine Protein 30 H Urine Glucose (UA) Negative Urine Ketones 20 Urine Occult Blood Negative Urine Nitrate Negative Urine Bilirubin Negative Urine Urobilinogen 4 or greater Ur Leukocyte Esterase Negative Urine RBC 2 Urine WBC 7 H Ur Squamous Epith Cells 1 Urine Bacteria Many H Urine Mucus Many H Micro UA Comment Cath-culture ind Ur Microscopic Review Not Reportable Urine Culture Comments Cath-cult indicated - Imaging Impressions Chest X-Ray 01/28/18 10:47 CONCLUSION: Mild compensated cardiomegaly Caprini VTE Risk Assessment Caprini VTE Risk Assessment: Moderate/High Risk (score >= 2) Caprini Risk Assessment Model: Point Value = 1 Point Value = 2 Point Value = 3 Point Value = 5 Age 41-60 Minor surgery BMI > 25 kg/m2 Swollen legs Varicose veins or History of unexplained or recurrent spontaneous Oral contraceptives or hormone replacement Sepsis (< 1 month) Serious lung disease, including pneumonia (< 1 month) Abnormal pulmonary function Acute myocardial infarction Congestive heart failure (< 1 month) History of inflammatory bowel disease Medical patient at bed rest Age 61-74 Arthroscopic surgery Major open surgery (> 45 min) Laparoscopic surgery (> 45 min) Malignancy Confined to bed (> 72 hours) Immobilizing plaster cast Central venous access Age >= 75 History of VTE Family history of VTE Factor V Leiden Prothrombin [id number] Lupus anticoagulant Anticardiolipin antibodies Elevated serum homocysteine Heparin-induced thrombocytopenia Other congenital or acquired thrombophilia Stroke (< 1 month) Elective arthroplasty Hip, pelvis, or leg fracture Acute spinal cord injury (< 1 month) Prophylaxis Regimen: Total Risk Factor Score Risk Level Prophylaxis Regimen 0-1 Low Early ambulation 2 Moderate Order ONE of the following: *Sequential Compression Device (SCD) *Heparin 5000 units SQ BID 3-4 Higher Order ONE of the following medications: *Heparin 5000 units SQ TID *Enoxaparin/Lovenox 40 mg SQ daily (WT < 150 kg, CrCl > 30 mL/min) *Enoxaparin/Lovenox 30 mg SQ daily (WT < 150 kg, CrCl > 10-29 mL/min) *Enoxaparin/Lovenox 30 mg SQ BID (WT < 150 kg, CrCl > 30 mL/min) AND/OR *Sequential Compression Device (SCD) 5 or more Highest Order ONE of the following medications: *Heparin 5000 units SQ TID (Preferred with Epidurals) *Enoxaparin/Lovenox 40 mg SQ daily (WT < 150 kg, CrCl > 30 mL/min) *Enoxaparin/Lovenox 30 mg SQ daily (WT < 150 kg, CrCl > 10-29 mL/min) *Enoxaparin/Lovenox 30 mg SQ BID (WT < 150 kg, CrCl > 30 mL/min) AND *Sequential Compression Device (SCD) Assessment and Plan - Plan 57-year-old female with history of MS, prior tobacco use, neuropathy, chronic pain, presents with a 3-day history of cough and fever. Sepsis with community-acquired pneumonia: +Fever Tmax 102 and tachypnea RR 26, HR 109 - suspect source-pneumonia. +productive cough. -CXR reviewed, shows mild compensated cardiomegaly, suspect clinical early for radiographic evidence of infiltrate -Influenxa negative -Sputum culture collected and pending -Blood cultures collected -Continue antibiotics with IV Rocephin and Azithro po -Mucinex bid -Incentive spirometer -Supportive treatment with IVF -Monitor for improvement COPD Exacerbation: mild. Patient with +wheezing upon arrival, relieved by IV Solumedrol and duonebs -S/p IV Solumedrol 125mg x1 in the ED -Continue steroids with IV Solumedrol 40mg bid -Continue bronchodilators with Duonebs q8h and q4h prn -Mucinex bid -O2 as needed UTI: UA with +bacteria. -on antibiotics with IV Rocephin as above -Monitor urine culture, adjust/discontinue antibiotics as needed MS: chronic, mildly exacerbated due to infections as above -Consult PT/OT -Continue patient's baclofen 20mg bid -Percocet prn pain DVT Prophylaxis: teds/SCDs
[2018-01-28] MEDS: Sod Chloride 0.9% Inj 1,000 ML IV.CONT SCH (14:08)
[2018-01-28] MEDS: guaiFENesin 600 MG ER Tablet PO SCH (21:41)
[2018-01-28] MEDS: Pregabalin 25 MG Capsule PO SCH (21:41)
[2018-01-28] MEDS: MethylPREDNISolone Sod Succinate Inj 40 MG/ML Vial IV.PUSH SCH (21:42)
[2018-01-28] MEDS: Senna/Docusate Sodium 8.6/50 MG Tablet PO SCH (21:42)
[2018-01-29] MEDS: oxyCODONE/Acetaminophen 10/325 Tablet PO PRN ×2 (00:49→06:24)
[2018-01-29] MEDS: Sod Chloride 0.9% Inj 1,000 ML IV.CONT SCH ×2 (00:51→15:53)
[2018-01-29 05:26] LABS: Baso % (Auto) 0.1 % (0.0-2.0); Hematocrit 31.2 % (35.0-46.0); Hemoglobin 10.6 gm/dL (11.6-15.3); Lymph # (Auto) 0.8 th/mm3 (1.0-4.8); Lymph % (Auto) 13.7 % (9.0-44.0); Mean Corpuscular Hemoglobin 30.7 pg (27.0-34.0); Mean Corpuscular Volume 90.3 fL (80.0-100.0); Mean Platelet Volume 9.8 fL (7.0-11.0); Mono # (Auto) 0.2 th/mm3 (0.0-0.9); Mono % (Auto) 3.1 % (0.0-8.0); Neut # (Auto) 4.8 th/mm3 (1.8-7.7); Neut % (Auto) 83.1 % (16.0-70.0); Platelet Count 123 th/mm3 (150-450); Red Blood Count 3.46 mil/mm3 (4.00-5.30); Red Cell Distribution Width 13.5 % (11.6-17.2); White Blood Count 5.7 th/mm3 (4.0-11.0)
[2018-01-29 05:50] LABS: Anion Gap 10 meq/L (5-15); Blood Urea Nitrogen 16 mg/dL (7-18); Calcium 8.1 mg/dL (8.5-10.1); Carbon Dioxide 27.3 meq/L (21.0-32.0); Chloride 111 meq/L (98-107); Glomerular Filtration Rate Greater Than 89 mL/min (>89); Glucose,Random 116 mg/dL (74-106); Potassium 3.1 meq/L (3.5-5.1); Sodium 148 meq/L (136-145)
[2018-01-29] MEDS ORDERED: clonazePAM 0.5 MG Tablet PO SCH (09:00)
[2018-01-29] MEDS: Pregabalin 25 MG Capsule PO SCH (10:09)
[2018-01-29] MEDS: guaiFENesin 600 MG ER Tablet PO SCH (10:11)
[2018-01-29] MEDS: Senna/Docusate Sodium 8.6/50 MG Tablet PO SCH (10:11)
[2018-01-29] MEDS: MethylPREDNISolone Sod Succinate Inj 40 MG/ML Vial IV.PUSH SCH (10:12)
--- NOTE | 2018-01-29 10:18 | P.PN ---
Subjective Interval history: Follow-up for pneumonia, COPD exacerbation. Patient reports overall feeling better today. She states early this morning she did have intractable coughing and gagging with subsequent episode of vomiting. She denies any current nausea or abdominal pain. She states her breathing is better. She states her cough is improving, productive of white sputum today. Denies any fevers or chills today. Denies any further wheezing. She wants to go home. Physical Exam Vital signs: Vital Signs 01/28/18 10:21 01/28/18 12:14 01/28/18 12:15 Temperature 100.7 F H Pulse Rate 88 76 76 Respiratory Rate 26 H 15 15 Blood Pressure 155/72 H Pulse Oximetry 100 01/28/18 12:16 01/28/18 13:17 01/28/18 14:15 Temperature 99 F Pulse Rate 76 109 H Respiratory Rate 15 20 Blood Pressure 126/57 L Pulse Oximetry 98 01/28/18 16:00 01/28/18 23:22 01/29/18 01:20 Temperature 98.7 F 98.9 F Pulse Rate 73 55 L Respiratory Rate 16 16 20 Blood Pressure 90/43 L 111/59 L Pulse Oximetry 98 98 01/29/18 04:00 01/29/18 07:23 Temperature 99.5 F Pulse Rate 55 L 45 L Respiratory Rate 17 16 Blood Pressure 127/55 L 144/58 H Pulse Oximetry 97 97 Intake & Output 01/28/18 01/29/18 01/29/18 18:59 06:59 18:59 Intake Total 850 / 850 1000 / 1000 Output Total 300 / 300 800 / 800 Balance 550 / 550 200 / 200 Weight 77.111 kg Intake: IV 850 / 850 1000 / 1000 NS Inj 1,000 ML @ 100 mls/hr IV 1000 / 1000 .CONT .Q10H AYO Rx#:[id number] Azithromycin Inj 500 MG In NS 250 / 250 Inj 250 ML @ 250 mls/hr IV.SIG ONCE ONE Rx#:[id number] NS Inj 500 ML @ 1000 mls/hr IV. 500 / 500 SIG BOLUS AYO Rx#:[id number] Rocephin Inj 1,000 MG In NS Inj 100 / 100 100 ML @ 200 mls/hr IV.SIG ONCE ONE Rx#:[id number] Output: Urine 300 / 300 800 / 800 Other: Date of Last Bowel Movement 01/28/18 Weight On Admission 77.111 kg Narrative: GENERAL: Well-nourished, well-developed middle-aged female patient in NAD. SKIN: Warm and dry. No rash. HEENT: Normocephalic. Atraumatic. Pupils equal and round. Mucous membranes pink and moist. CARDIOVASCULAR: Regular rate and rhythm. No murmur appreciated. RESPIRATORY: No accessory muscle use. Clear to auscultation. Breath sounds equal bilaterally. GASTROINTESTINAL: Abdomen soft, non-tender, nondistended. Normoactive bowel sounds x4. MUSCULOSKELETAL: No obvious deformities. Extremities without clubbing, cyanosis , or edema. NEUROLOGICAL: Awake and alert. No obvious cranial nerve deficits. Motor grossly within normal limits. Moving all extremities spontaneously with generalized weakness. Normal speech. PSYCHIATRIC: Appropriate mood and affect; insight and judgment normal. Results - Labs CBC & Chem 7: 01/29/18 04:30 01/29/18 04:30 Laboratory Results - last 24 hr 01/28/18 01/28/18 01/28/18 10:51 10:51 10:51 WBC 5.8 RBC 3.81 L Hgb 11.9 Hct 34.1 L MCV 89.4 MCH 31.1 MCHC 34.8 RDW 13.3 Plt Count 125 L MPV 9.5 Neut % (Auto) 88.2 H Lymph % (Auto) 6.9 L [place] % (Auto) 4.8 Eos % (Auto) 0.0 Baso % (Auto) 0.1 Neut # (Auto) 5.1 Lymph # (Auto) 0.4 L [place] # (Auto) 0.3 Eos # (Auto) 0.0 Baso # (Auto) 0.0 WBC Differential . Differential Comment Auto diff final Sodium 143 Potassium 3.8 Chloride 106 Carbon Dioxide 31.4 Anion Gap 6 BUN 21 H Creatinine 0.58 Estimated GFR Greater than 89 Random Glucose 117 H Lactic Acid 1.6 Calcium 8.4 L Total Bilirubin 0.4 AST 30 ALT 30 Alkaline Phosphatase 117 Troponin I Total Protein 7.1 Albumin 3.0 L Urine Color Urine Clarity Urine pH Ur Specific [place] Urine Protein Urine Glucose (UA) Urine Ketones Urine Occult Blood Urine Nitrate Urine Bilirubin Urine Urobilinogen Ur Leukocyte Esterase Urine RBC Urine WBC Ur Squamous Epith Cells Urine Bacteria Urine Mucus Micro UA Comment Ur Microscopic Review Urine Culture Comments 01/28/18 01/28/18 01/29/18 10:51 10:51 04:30 WBC 5.7 RBC 3.46 L Hgb 10.6 L Hct 31.2 L MCV 90.3 MCH 30.7 MCHC 34.0 RDW 13.5 Plt Count 123 L MPV 9.8 Neut % (Auto) 83.1 H Lymph % (Auto) 13.7 [place] % (Auto) 3.1 Eos % (Auto) 0.0 Baso % (Auto) 0.1 Neut # (Auto) 4.8 Lymph # (Auto) 0.8 L [place] # (Auto) 0.2 Eos # (Auto) 0.0 Baso # (Auto) 0.0 WBC Differential . Differential Comment Auto diff final Sodium Potassium Chloride Carbon Dioxide Anion Gap BUN Creatinine Estimated GFR Random Glucose Lactic Acid Calcium Total Bilirubin AST ALT Alkaline Phosphatase Troponin I Less than 0.02 L Total Protein Albumin Urine Color [place] Urine Clarity Cloudy H Urine pH 6.0 Ur Specific [place] 1.024 Urine Protein 30 H Urine Glucose (UA) Negative Urine Ketones 20 Urine Occult Blood Negative Urine Nitrate Negative Urine Bilirubin Negative Urine Urobilinogen 4 or greater Ur Leukocyte Esterase Negative Urine RBC 2 Urine WBC 7 H Ur Squamous Epith Cells 1 Urine Bacteria Many H Urine Mucus Many H Micro UA Comment Cath-culture ind Ur Microscopic Review Not Reportable Urine Culture Comments Cath-cult indicated 01/29/18 04:30 WBC RBC Hgb Hct MCV MCH MCHC RDW Plt Count MPV Neut % (Auto) Lymph % (Auto) [place] % (Auto) Eos % (Auto) Baso % (Auto) Neut # (Auto) Lymph # (Auto) [place] # (Auto) Eos # (Auto) Baso # (Auto) WBC Differential Differential Comment Sodium 148 H Potassium 3.1 L Chloride 111 H Carbon Dioxide 27.3 Anion Gap 10 BUN 16 Creatinine 0.61 Estimated GFR Greater than 89 Random Glucose 116 H Lactic Acid Calcium 8.1 L Total Bilirubin AST ALT Alkaline Phosphatase Troponin I Total Protein Albumin Urine Color Urine Clarity Urine pH Ur Specific [place] Urine Protein Urine Glucose (UA) Urine Ketones Urine Occult Blood Urine Nitrate Urine Bilirubin Urine Urobilinogen Ur Leukocyte Esterase Urine RBC Urine WBC Ur Squamous Epith Cells Urine Bacteria Urine Mucus Micro UA Comment Ur Microscopic Review Urine Culture Comments Microbiology 01/28/18 10:30 Sputum - Expectorated Sputum Gram Stain - Final 01/28/18 12:06 Nasal Wash Influenza Types A,B Antigen - Final Negative for FLU A and B antigen Infection due to influenza A or B cannot be ruled out since the antigen present in the sample may be below the detection limit of the test. - Imaging Impressions Chest X-Ray 01/28/18 10:47 CONCLUSION: Mild compensated cardiomegaly Assessment and Plan - Plan 57-year-old female with history of MS, prior tobacco use, neuropathy, chronic pain, presents with a 3-day history of cough and fever. Sepsis with community-acquired pneumonia: +Fever Tmax 102 and tachypnea RR 26, HR 109 - suspect source-pneumonia. +productive cough. -CXR reviewed, shows mild compensated cardiomegaly, suspect clinical early for radiographic evidence of infiltrate -Influenza negative -Sputum culture collected and pending -Blood cultures with no growth to date -Continue antibiotics with IV Rocephin and Azithro po -Mucinex bid -Incentive spirometer -Supportive treatment with IVF -Improved today, stable on room air, plan to discharge on Ceftin/azithromycin COPD Exacerbation: mild. Patient with +wheezing upon arrival, relieved by IV Solumedrol and duonebs -S/p IV Solumedrol 125mg x1 in the ED -Continue steroids with IV Solumedrol 40mg bid -Continue bronchodilators with Duonebs q8h and q4h prn -Mucinex bid -O2 as needed -Symptoms much improved, no further wheezing, stable on room air, will plan to discharge on prednisone taper and albuterol inhaler UTI: UA with +bacteria. -on antibiotics with IV Rocephin as above -Urine culture pending at discharge, however being discharged on Ceftin for pneumonia as above MS: chronic, mildly exacerbated due to infections as above -Consult PT/OT -Continue patient's baclofen 20mg bid -Percocet prn pain DVT Prophylaxis: teds/SCDs Discharge Planning: Discharge today after PT evaluation. Discussed with RN and case management. Discharge patient to home Condition on discharge: Stable Regular Diet as tolerated Ad Xiao activity Rx written: Ceftin, as a throat, prednisone taper, albuterol inhaler Follow-up with primary care physician Dr. An
[2018-01-29] MEDS ORDERED: Azithromycin 250 MG Tablet PO SCH (14:00)
--- NOTE | 2018-01-29 15:33 | ECG ---
Date Performed: 01/28/2018 Time Performed: 10:41:18 PTAGE: 57 years EKG: Sinus rhythm POSSIBLE LEFT ATRIAL ENLARGEMENT NONSPECIFIC ST & T-WAVE ABNORMALITY When compared to previous clara ng, sinus rate is faster. Nonspecific ST changes are more prominent. BORDERLINE ECG PREVIOUS TRACING : 04/24/2017 05.06.37 DOCTOR: Tee Florentino Interpretating Date/Time 01/29/2018 15:31:20
--- NOTE | 2018-01-29 16:32 | P.DCO ---
- Diagnosis (1) Acute UTI Status: Acute (2) Acute bronchitis Status: Acute (3) Multiple sclerosis Status: Acute - Physical Therapy Order: Evaluate and treat, Improve ambulation, Strength and gait training - Occupational Therapy Order: Evaluate and treat, Improve ADL - Home Health Nursing Order: Medical education, Signs/symptoms of disease process, Nursing assessment with vital signs - Home Health Aide Order: To assist in: Bathing and personal care, teacher and meal prep - Case Management Consult Yes - Certification I have seen patient Tiffani Christina on 01/29/18. My clinical findings support the need for the requested home health care services because: Limited mobility due to disease progression, Deconditioned with increased weakness, Limited ability to care for self I certify that my clinical findings support that this patient is homebound because: Hx COPD - exertion dyspnea/weakness, Unsteady gait/balance, Unsafe to leave home unassisted, Unable to use public transportation (2) Acute bronchitis Qualifiers: Bronchitis organism: unspecified organism Qualified Code(s): J20.9 - Acute bronchitis, unspecified
== END 2018-01-30 02:20 | disposition home health service (06) ==
LOC: NEDA 10:16 → NEPC 10:16 → NEDA 14:29 → NEPFCDU 14:31
PROVIDERS: ADMIT Hospitalist; ATTEND Hospitalist